=== PATIENT | female | born 1925 | race Caucasian/White ===

== ENCOUNTER 2016-11-07 11:02 | Observation (INO) | payer MEDICARE, OTHER ==
[2016-11-07] VITALS (7 sets, daily range): BP systolic 136–187; BP diastolic 67–81; PULSE 73–79; RESP 18–20; TEMP 97.9–98.8; O2SAT 94–100
[~2016-11-07] VITALS: Ht 162.6 cm; Wt 57.0 kg
[~2016-11-07 11:02] MED LIST: AMLO5 PO; ATEN50TA PO; CALCCHW25 PO; CELE1CAP8 PO; DIPH1TAB36 PO; METO25TA3 PO; PREM0.3T2 PO; VOLTAREN GEL TOP; ZANTTAB9 PO
[2016-11-07] MEDS ORDERED: CELE200C PO (11:16)
[2016-11-07] MEDS ORDERED: SODIUM CHLORIDE 0.9% FLUSH 5 ML FLUSH IVF PRN (11:45)
--- NOTE | 2016-11-07 11:50 | PD ---
HPI Chief Complaint: Cardiac Complaint Time Seen by Provider: 11:30 Travel History International Travel<30 days: No Contact w/Intl Traveler<30days: No Traveled to known affect area: No History of Present Illness HPI This is an 89-year-old female who presents via EMS for evaluation of chest tightness, palpitations. Symptoms started this morning at 2:30 AM, lasted for approximately 5 minutes, resolved. Symptoms recurred 4 times this morning, most recently at 10 AM. She reports that she has had increased urinary frequency today as well. She is currently not expressing any palpitations or chest tightness. She denies any associated symptoms such as nausea or vomiting , dizziness or lightheadedness, headache, fevers, chills, cough or congestion. The patient was admitted here on October 29 for third-degree heart block, had a transvenous pacemaker placed at that time which was discontinued prior to her discharge. She had one episode of SVT on the summer during her hospitalization. Her troponin was mildly elevated and the house felt to be secondary to her significant bradycardia per cardiology notes. She has a follow -up appointment with Dr. Herrera on December 01 and is supposed to be receiving a Holter monitor prior to this. She is currently on metoprolol 12.5 mg twice a day, Norvasc 5 mg daily for blood pressure control. She has no other complaints at this time. PFSH Past Medical History Arthritis: Yes Cancer: No Cardiovascular Problems: Yes Diabetes: No Endocrine: No Genitourinary: No Hepatitis: No Hiatal Hernia: No Hypertension: Yes Immune Disorder: No Medical other: Yes (MOTION SICKNESS) Musculoskeletal: Yes (NECK, BACK, ARTHRITIES) Neurologic: No Psychiatric: No Respiratory: No Thyroid Disease: No Tetanus Vaccination: > 5 Years Influenza Vaccination: Yes Menopausal: Yes Past Surgical History Abdominal Surgery: Yes (APPY) AICD: No Appendectomy: Yes Body Medical Devices: LEFT SHOULDER WITH SCREW Eye Surgery: Yes (BILAT CATARACT SURG) Gynecologic Surgery: Yes (TUBES AND 1 OVARY REMOVED) Joint Replacement: No Pacemaker: No Other Surgery: Yes (HEMORRHOIDECTOMY) Social History Alcohol Use: Yes (1 DRINK DAILY) Tobacco Use: No Substance Use: No Allergies-Medications (Allergen,Severity, Reaction): Coded Allergies: Flagyl (Verified Allergy, Intermediate, Rash, 11/07/16) Reported Meds & Prescriptions Reported Meds & Active Scripts Active Metoprolol Tartrate 25 Mg Tab 12.5 Mg PO Q12HR Norvasc (Amlodipine Besylate) 5 Mg Tab 5 Mg PO DAILY 30 Days Reported Celebrex (Celecoxib) 200 Mg Cap 200 Mg PO DAILY Prempro Blister Pack (Estrogens Conj/Medroxyprogest Acet) 0.3-1.5 Mg Tab 1 Tab PO DAILY Tylenol Pm Extra Strength (Diphenhydramine-Acetaminophen) 25-500 Mg Tab PO DAILY Review of Systems Except as stated in HPI: all other systems reviewed are Neg Physical Exam Narrative GENERAL: Pleasant well developed well-nourished female in no acute distress. SKIN: Warm and dry. HEAD: Atraumatic. Normocephalic. EYES: Pupils equal and round. No scleral icterus. No injection or drainage. ENT: No nasal bleeding or discharge. Mucous membranes pink and moist. NECK: Trachea midline. No JVD. CARDIOVASCULAR: Regular rate and rhythm. No murmur appreciated. RESPIRATORY: No accessory muscle use. Clear to auscultation. Breath sounds equal bilaterally. GASTROINTESTINAL: Abdomen soft, non-tender, nondistended. MUSCULOSKELETAL: No obvious deformities. No edema. NEUROLOGICAL: Awake and alert. No obvious cranial nerve deficits. Motor grossly within normal limits. Normal speech. PSYCHIATRIC: Appropriate mood and affect; insight and judgment normal. Data Data Last Documented VS Vital Signs Date Time Temp Pulse Resp B/P Pulse Ox O2 Delivery O2 Flow Rate FiO2 11/07/16 11:16 78 18 99 Room Air 11/07/16 11:06 98.8 187/81 Orders Electrocardiogram (11/07/16 ) Electrocardiogram (11/07/16 11:32) Basic Metabolic Panel (Bmp) (11/07/16 11:32) Ckmb (Isoenzyme) Profile (11/07/16 11:32) Complete Blood Count With Diff (11/07/16 11:32) Magnesium (Mg) (11/07/16 11:32) Prothrombin Time / Inr (Pt) (11/07/16 11:32) Act Partial Throm Time (Ptt) (11/07/16 11:32) Troponin I (11/07/16 11:32) Chest, Single Ap (11/07/16 11:32) Ecg Monitoring (11/07/16 11:32) Bilateral Bp Monitoring (11/07/16 11:32) Iv Access Insert/Monitor (11/07/16 11:32) Oximetry (11/07/16 11:32) Oxygen Administration (11/07/16 11:32) Sodium Chloride 0.9% Flush (Ns Flush) (11/07/16 11:45) Urinalysis - C+S If Indicated (11/07/16 11:32) Urine Culture (11/07/16 12:50) Ceftriaxone Inj (Rocephin Inj) (11/07/16 13:30) Admit Order (Ed Use Only) (11/07/16 13:33) Labs Laboratory Tests Test 11/07/16 11/07/16 11:40 12:50 White Blood Count 7.8 TH/MM3 Red Blood Count 4.11 MIL/MM3 Hemoglobin 12.9 GM/DL Hematocrit 37.9 % Mean Corpuscular Volume 92.3 FL Mean Corpuscular Hemoglobin 31.3 PG Mean Corpuscular Hemoglobin 33.9 % Concent Red Cell Distribution Width 13.0 % Platelet Count 301 TH/MM3 Mean Platelet Volume 9.2 FL Neutrophils (%) (Auto) 69.3 % Lymphocytes (%) (Auto) 14.3 % Monocytes (%) (Auto) 13.8 % Eosinophils (%) (Auto) 1.7 % Basophils (%) (Auto) 0.9 % Neutrophils # (Auto) 5.4 TH/MM3 Lymphocytes # (Auto) 1.1 TH/MM3 Monocytes # (Auto) 1.1 TH/MM3 Eosinophils # (Auto) 0.1 TH/MM3 Basophils # (Auto) 0.1 TH/MM3 CBC Comment DIFF FINAL Differential Comment Prothrombin Time 10.4 SEC Prothromb Time International 0.9 RATIO Ratio Activated Partial 26.4 SEC Thromboplast Time Sodium Level 144 MEQ/L Potassium Level 4.3 MEQ/L Chloride Level 110 MEQ/L Carbon Dioxide Level 23.0 MEQ/L Anion Gap 11 MEQ/L Blood Urea Nitrogen 22 MG/DL Creatinine 0.91 MG/DL Estimat Glomerular Filtration 58 ML/MIN Rate Random Glucose 93 MG/DL Calcium Level 9.3 MG/DL Magnesium Level 2.2 MG/DL Total Creatine Kinase 48 U/L Troponin I LESS THAN 0.02 NG/ML Urine Color YELLOW Urine Turbidity HAZY Urine pH 8.0 Urine Specific [place] 1.011 Urine Protein TRACE mg/dL Urine Glucose (UA) NEG mg/dL Urine Ketones TRACE mg/dL Urine Occult Blood SMALL Urine Nitrite POS Urine Bilirubin NEG Urine Urobilinogen LESS THAN 2.0 MG/DL Urine Leukocyte Esterase LARGE Urine RBC 14 /hpf Urine WBC 138 /hpf Urine Squamous Epithelial 4 /hpf Cells Urine Bacteria MOD /hpf Urine Mucus FEW /lpf Microscopic Urinalysis Comment CULTURE INDICATED MDM Medical Decision Making Medical Screen Exam Complete: Yes Emergency Medical Condition: Yes Medical Record Reviewed: Yes Interpretation(s) EKG reveals sinus rhythm, RBBB Chest x-ray no acute disease CBC WBC unremarkable BMP unremarkable, CK and troponin within normal limits Urinalysis 138 wbc's, positive nitrites, small blood, moderate bacteria, culture pending Differential Diagnosis Heart block, SVT, atrial fibrillation, acute coronary syndrome, angina, PVCs, PACs, electrolyte imbalance, atrial flutter, ventricular tachycardia Narrative Course 89-year-old female who was admitted on October 29 for evaluation of third- degree heart block presents for evaluation of intermittent episodes of palpitation and chest tightness this morning. Currently she is experiencing no discomfort. She notes increased urinary frequency today as well. 12-lead EKG was obtained. The patient was placed on the seat monitoring and pulse oximetry. IV established, basic lab work, chest x-ray have been ordered. The patient's urinalysis is consistent with a urinary tract infection and the patient will be given a dose of Rocephin. At this point time the plan is to admit the patient for further management of her chest pain, palpitations, UTI, likely for serial cardiac enzymes and cardiology consultation. Diagnosis Primary Impression: Chest pain Qualified Code: R07.9 - Chest pain, unspecified type Additional Impressions: Palpitations Urinary tract infection Qualified Code: N39.0 - Urinary tract infection with hematuria, site unspecified Admitting Information Admitting Physician Requests: Natan Mancini Nov 07, 2016 11:50
[2016-11-07 12:07] LABS: AUTOMATED NEUTROPHIL # 5.4 TH/MM3 (1.8-7.7); BASOPHIL # 0.1 TH/MM3 (0-0.2); BASOPHIL % 0.9 % (0.0-2.0); EOSINOPHIL # 0.1 TH/MM3 (0-0.4); EOSINOPHIL % 1.7 % (0.0-4.0); HEMATOCRIT 37.9 % (35.0-46.0); HEMO FLAGS DIFF FINAL; LYMPH % 14.3 % (9.0-44.0); LYMPHOCYTE # 1.1 TH/MM3 (1.0-4.8); MEAN CELL VOLUME 92.3 FL (80.0-100.0); MEAN CORPUSCULAR HEMOGLOBIN 31.3 PG (27.0-34.0); MEAN CORPUSCULAR HGB CONC 33.9 % (32.0-36.0); MONO % 13.8 % (0.0-8.0); NEUT % 69.3 % (16.0-70.0); PLATELET COUNT 301 TH/MM3 (150-450); RED BLOOD COUNT 4.11 MIL/MM3 (4.00-5.30); WHITE BLOOD COUNT 7.8 TH/MM3 (4.0-11.0)
[2016-11-07 12:21] LABS: APTT (PATIENT) 26.4 SEC (24.3-30.1); INTERNATIONAL NORMALIZED RATIO 0.9 RATIO; PROTHROMBIN TIME - PATIENT 10.4 SEC (9.8-11.6)
[2016-11-07 12:35] LABS: ANION GAP 11 MEQ/L (5-15); BLOOD UREA NITROGEN 22 MG/DL (7-18); CHLORIDE 110 MEQ/L (98-107); CREATINE KINASE 48 U/L (26-192); GLOMERULAR FILTRATION RATE 58 ML/MIN (>89); MAGNESIUM 2.2 MG/DL (1.5-2.5); POTASSIUM 4.3 MEQ/L (3.5-5.1); SODIUM (NA) 144 MEQ/L (136-145)
--- NOTE | 2016-11-07 12:43 | RADRPT ---
EXAM DATE/TIME: 11/07/2016 11:58 [facility] COMPARISON: CHEST SINGLE AP, October 31, 2016, 11:52. INDICATIONS : Chest Pain MEDICAL HISTORY : None. SURGICAL HISTORY : None. ENCOUNTER: Initial ACUITY: 1 day PAIN SCORE: 0/10 LOCATION: Bilateral chest FINDINGS: A single view of the chest demonstrates the lungs to be symmetrically aerated without evidence of mas s, infiltrate or effusion. The cardiomediastinal contours are unremarkable. Osseous structures demo nstrate left shoulder arthroplasty. Aortic calcification.. CONCLUSION: No acute disease. Louie Hudson MD on November 07, 2016 at 12:42 Board Certified Radiologist. This report was verified electronically.
[2016-11-07 13:06] LABS: BACTERIA, URINE MOD /hpf; BLOOD, URINE SMALL (NEG); COMMENT (UR) CULTURE INDICATED; CULTURE IF INDICATED CULTURE INDICATED; GLUCOSE,URINE NEG (NEG); KETONE, URINE TRACE mg/dL (NEG); MUCUS URINE FEW /lpf (OCC); SQUAMOUS EPITHELIAL CELL URINE 4 /hpf (0-5); URINE COLOR YELLOW (YELLW/STRAW)
[2016-11-07 13:07] LABS: NITRITE,URINE POS (NEG)
[2016-11-07] MEDS ORDERED: cefTRIAXone INJ 1,000 MG in SODIUM CHLORIDE 0.9% INJ 100 ML IV ONE (13:30)
--- NOTE | 2016-11-07 14:15 | HHI.HP ---
[facility] Family Medicine Primary Care Physician Srinivasa Oh MD Admission Diagnosis Chest pain, palpitations, UTI Diagnoses: International Travel<30 Days: No Contact w/Intl Traveler<30days: No Known Affected Area: No History of Present Illness Patient is a 89-year-old female with a PMH significant for HTN. Patient was recently admitted on 10/29 for lightheadedness and dizziness which was attributed to symptomatic bradycardia. She was found to have third-degree AV block and was currently on atenolol at that time. She was placed on TVP and then converted to sinus rhythm after discontinuation of atenolol. Cardiology at that time did not feel permanent pacemaker was required. During that hospitalization, she did experience an episode of SVT for 2 minutes but with spontaneous conversion to normal sinus. Today patient woke up at 2 AM and had palpitations. She again had recurrent episodes of palpitations at 6 AM, 7:30 AM, and 11 AM. Each episode lasted for about 3-5 minutes. Required her to sit down before spontaneously resolving. During those episodes, she endorses chest heaviness that was diffusely across the chest without radiation. No associated shortness of breath, diaphoresis, nausea/vomiting. These palpitations did wake the patient up from her sleep. She reports that these episodes of palpitations and chest heaviness are different than her prior admission which was more related to dizziness and lightheadedness. She has not had anymore episodes of lightheadedness since last admission. Patient also reports an increase in urinary frequency but no dysuria. Review of Systems Constitutional: DENIES: Diaphoretic episodes, Dizziness Ears, nose, mouth, throat: DENIES: Vertigo, Running Nose Respiratory: DENIES: Shortness of breath Cardiovascular: DENIES: Chest pain, Palpitations, Syncope Gastrointestinal: DENIES: Abdominal pain, Nausea, Vomiting Genitourinary: COMPLAINS OF: Urinary frequency, DENIES: Dysuria Neurologic: DENIES: Headache Past Family Social History Past Medical History Osteoarthritis Hypertension 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, has since resolved Past Surgical History Appendectomy Bilateral cataracts Left total shoulder arthroplasty Salpingo-oophorectomy Hemorrhoidectomy Reported Medications Reported Meds & Active Scripts Active Metoprolol Tartrate 25 Mg Tab 12.5 Mg PO Q12HR Norvasc (Amlodipine Besylate) 5 Mg Tab 5 Mg PO DAILY 30 Days Reported Celebrex (Celecoxib) 200 Mg Cap 200 Mg PO DAILY Prempro Blister Pack (Estrogens Conj/Medroxyprogest Acet) 0.3-1.5 Mg Tab 1 Tab PO DAILY Tylenol Pm Extra Strength (Diphenhydramine-Acetaminophen) 25-500 Mg Tab PO DAILY Allergies: Coded Allergies: Flagyl (Verified Allergy, Intermediate, Rash, 11/07/16) Family History Dad: Stroke, heart dz Mom: Alzheimers Sibs: Prostate CA Social History EtOH: one drink daily Tob: 10 pack/yr smoker; quit in 1966 Illicits: None Physical Exam Vital Signs Vital Signs Date Time Temp Pulse Resp B/P Pulse Ox O2 Delivery O2 Flow Rate FiO2 11/07/16 14:04 99 Room Air 11/07/16 14:04 99 Room Air 11/07/16 14:03 73 20 136/74 99 Room Air 11/07/16 11:16 78 18 99 Room Air 11/07/16 11:06 98.8 73 18 187/81 99 Physical Exam GENERAL: This is a well-nourished, well-developed patient, in no apparent distress. SKIN: No rashes, ecchymoses or lesions. Cool and dry. EYES: Pupils equal round and reactive. Extraocular motions intact. No scleral icterus. No injection or drainage. ENT: Nose without bleeding, purulent drainage. Throat without erythema, tonsillar hypertrophy or exudate. Uvula midline. Airway patent. NECK:No JVD CARDIOVASCULAR: Regular rate and rhythm without murmurs, gallops, or rubs. RESPIRATORY: Clear to auscultation. Breath sounds equal bilaterally. No wheezes , rales, or rhonchi. GASTROINTESTINAL: Abdomen soft, non-tender, nondistended. No hepato-splenomegaly , or palpable masses. No guarding. MUSCULOSKELETAL: Extremities without clubbing, cyanosis, or edema. No calf tenderness. NEUROLOGICAL: Awake and alert. Motor and sensory grossly within normal limits. Normal speech. Laboratory Laboratory Tests Test 11/07/16 11/07/16 11:40 12:50 White Blood Count 7.8 Red Blood Count 4.11 Hemoglobin 12.9 Hematocrit 37.9 Mean Corpuscular Volume 92.3 Mean Corpuscular Hemoglobin 31.3 Mean Corpuscular Hemoglobin 33.9 Concent Red Cell Distribution Width 13.0 Platelet Count 301 Mean Platelet Volume 9.2 Neutrophils (%) (Auto) 69.3 Lymphocytes (%) (Auto) 14.3 Monocytes (%) (Auto) 13.8 Eosinophils (%) (Auto) 1.7 Basophils (%) (Auto) 0.9 Neutrophils # (Auto) 5.4 Lymphocytes # (Auto) 1.1 Monocytes # (Auto) 1.1 Eosinophils # (Auto) 0.1 Basophils # (Auto) 0.1 CBC Comment DIFF FINAL Differential Comment Prothrombin Time 10.4 Prothromb Time International 0.9 Ratio Activated Partial 26.4 Thromboplast Time Sodium Level 144 Potassium Level 4.3 Chloride Level 110 Carbon Dioxide Level 23.0 Anion Gap 11 Blood Urea Nitrogen 22 Creatinine 0.91 Estimat Glomerular Filtration 58 Rate Random Glucose 93 Calcium Level 9.3 Magnesium Level 2.2 Total Creatine Kinase 48 Troponin I LESS THAN 0.02 Urine Color YELLOW Urine Turbidity HAZY Urine pH 8.0 Urine Specific [place] 1.011 Urine Protein TRACE Urine Glucose (UA) NEG Urine Ketones TRACE Urine Occult Blood SMALL Urine Nitrite POS Urine Bilirubin NEG Urine Urobilinogen LESS THAN 2.0 Urine Leukocyte Esterase LARGE Urine RBC 14 Urine WBC 138 Urine Squamous Epithelial 4 Cells Urine Bacteria MOD Urine Mucus FEW Microscopic Urinalysis Comment CULTURE INDICATED Date/Time Procedure Status Source Growth 11/07/16 12:50 Urine Culture Received Urine Clean Catch Pending Result Diagram: 11/07/16 1140 11/07/16 1140 Imaging Last Impressions Chest X-Ray 11/07/16 1132 Signed Impressions: Service Date/Time: Monday, November 07, 2016 11:58 - CONCLUSION: No acute disease. Louie Hudson MD Assessment and Plan Assessment and Plan 89-year-old female with PMH significant for HTN. Recently hospitalized for third degree heart block attributed to atenolol but has since resolved. Admitted for recurrent palpitations and chest heaviness. Code Status Full Discussed Condition With Dr. Grimaldo Problem List: (1) Palpitations Status: Acute Plan: Presented due to 4 episodes of palpitations that lasted for 3-5 minutes. Associated with chest heaviness but is currently asymptomatic. History complicated by recent admission for AV heart block contributed to atenolol; during the hospitalization she did have an episode of SVT that spontaneously resolved. She was scheduled to get a Holter monitor and follow-up with Dr. Herrera within 3wks of discharge. Low suspicion for ischemia but rather concerned for recurrent, symptomatic SVT that may require further intervention. -EKG significant for right bundle branch that this is stable from prior EKGs. Troponin was <0.02. No ST changes * Repeat EKG and troponin 2 at q3hr -Cardiac telemetry Cardiology consulted: For concern of recurrent SVT. Appreciate recommendations Medications: * Amlodipine 5 mg (continued home medication) * Metoprolol 12.5 mg q12 (continued home medication) (2) Urinary tract infection Status: Acute Plan: Complains of increased urinary frequency. UA significant for positive nitrates and large leukocyte esterase. No concern for sepsis at this time. Rocephin 3 days (11/07-11/09) (3) Hypertension Status: Acute Plan: Continued home medications, see above -Vasotec PRN (4) Arthritis Status: Chronic Plan: Continue home medication of Celebrex 200 mg daily -Added Leslie pain medications when necessary (5) Fluids, Electrolytes, and Nutrition Status: Acute Plan: Diet: Regular Fluids: None Electrolytes: Unremarkable, continue to monitor DVT prophylaxis: Lovenox GI prophylaxis: None indicated Problem Qualifiers (1) Urinary tract infection: Qualified Code: N39.0 - Urinary tract infection with hematuria, site unspecified Reena Irizarry MD R2 Nov 07, 2016 14:15
[2016-11-07] MEDS ORDERED: NALOXONE HCL 0.4 MG/ML AMP IV PRN ×2 (15:30)
[2016-11-07] MEDS ORDERED: SODIUM CHLORIDE 0.9% FLUSH 5 ML FLUSH FLUSH PRN (15:30)
[2016-11-07] MEDS ORDERED: ACETAMINOPHEN 325 MG TAB PO PRN (15:30)
[2016-11-07] MEDS ORDERED: oxyCODONE/ACETAMINOPHEN 10 MG/325 MG TAB PO PRN (15:30)
[2016-11-07] MEDS ORDERED: oxyCODONE/ACETAMINOPHEN 5 MG/325 MG TAB PO PRN (15:30)
[2016-11-07] MEDS ORDERED: ONDANSETRON HCL 4 MG/2 ML VIAL IVP PRN (15:30)
[2016-11-07] MEDS ORDERED: ENALAPRILAT 1.25 MG/ML VIAL IV PRN (15:30)
[2016-11-07] MEDS ORDERED: ENOXAPARIN SODIUM 40 MG/0.4 ML SYRINGE SQ SCH (17:00)
[2016-11-07] MEDS: SODIUM CHLORIDE 0.9% FLUSH 5 ML FLUSH FLUSH SCH (20:21)
[2016-11-07] MEDS: METOPROLOL TARTRATE 25 MG TAB PO SCH (20:21)
[2016-11-08] VITALS (11 sets, daily range): BP systolic 144–151; BP diastolic 73–90; PULSE 70–98; RESP 18–20; TEMP 98.1–98.3; O2SAT 95–98
[2016-11-08 07:55] LABS: AUTOMATED NEUTROPHIL # 2.6 TH/MM3 (1.8-7.7); BASOPHIL # 0.1 TH/MM3 (0-0.2); BASOPHIL % 1.4 % (0.0-2.0); EOSINOPHIL # 0.2 TH/MM3 (0-0.4); EOSINOPHIL % 4.9 % (0.0-4.0); HEMO FLAGS DIFF FINAL; LYMPHOCYTE # 1.2 TH/MM3 (1.0-4.8); MEAN CELL VOLUME 92.8 FL (80.0-100.0); MEAN CORPUSCULAR HEMOGLOBIN 30.4 PG (27.0-34.0); MEAN CORPUSCULAR HGB CONC 32.7 % (32.0-36.0); MONO % 15.8 % (0.0-8.0); NEUT % 52.9 % (16.0-70.0); PLATELET COUNT 271 TH/MM3 (150-450); RED BLOOD COUNT 3.99 MIL/MM3 (4.00-5.30); RED CELL DISTRIBUTION WIDTH 13.2 % (11.6-17.2); WHITE BLOOD COUNT 4.9 TH/MM3 (4.0-11.0)
[2016-11-08 08:37] LABS: POTASSIUM 3.7 MEQ/L (3.5-5.1)
[2016-11-08] MEDS ORDERED: CELECOXIB 200 MG CAP PO SCH ×2 (09:00)
[2016-11-08] MEDS ORDERED: amLODIPine BESYLATE 5 MG TAB PO SCH (09:00)
[2016-11-08] MEDS: METOPROLOL TARTRATE 25 MG TAB PO SCH (09:41)
[2016-11-08] MEDS: cefTRIAXone INJ 1,000 MG in SODIUM CHLORIDE 0.9% INJ 100 ML IV SCH ×2 (09:42→10:41)
[2016-11-08] MEDS: SODIUM CHLORIDE 0.9% FLUSH 5 ML FLUSH FLUSH SCH (09:42)
--- NOTE | 2016-11-08 10:08 | HHI.DCPOC ---
Discharge Care Plan Diagnosis: (1) Palpitations (2) Chest pain Goals to Promote Your Health * To prevent worsening of your condition and complications * To maintain your health at the optimal level Directions to Meet Your Goals Take your medications as prescribed Follow your dietary instruction Follow activity as directed Keep your appointments as scheduled Take your immunizations and boosters as scheduled If your symptoms worsen call your PCP, if no PCP go to Urgent Care Center or Emergency Room Smoking is Dangerous to Your Health. Avoid second hand smoke Call the 24-hour hour crisis hotline for domestic abuse at Joanne Pope MD Nov 08, 2016 10:08
[2016-11-08] MEDS ORDERED: BACT800T5 PO (10:11)
--- NOTE | 2016-11-08 11:16 | HHI.HP ---
[facility] Service Family Medicine Primary Care Physician Srinivasa Oh MD Admission Diagnosis Chest pain, palpitations, UTI Diagnoses: (1) Palpitations Diagnosis: Principal (2) Urinary tract infection Diagnosis: Principal (3) Hypertension Diagnosis: Principal (4) Arthritis Diagnosis: Principal (5) Fluids, Electrolytes, and Nutrition Diagnosis: Principal International Travel<30 Days: No Contact w/Intl Traveler<30days: No Known Affected Area: No History of Present Illness Ms Hyman is an 89-year-old female with a PMH significant for HTN. Patient was recently admitted on 10/29 for lightheadedness and dizziness which was attributed to symptomatic bradycardia. She was found to have third-degree AV block and was currently on atenolol at that time. She was placed on TV Pacemaker and then converted to sinus rhythm after discontinuation of atenolol. Cardiology at that time did not feel permanent pacemaker was required. During that hospitalization, she did experience an episode of SVT for 2 minutes but with spontaneous conversion to normal sinus. The day of admission, patient woke up at 2 AM and had palpitations. She again had recurrent episodes of palpitations at 6 AM, 7:30 AM, and 11 AM. Each episode lasted for about 3-5 minutes and occurred when she was walking to the bathroom. Required her to sit down before spontaneously resolving. During those episodes, she endorses chest heaviness that was diffusely across the chest without radiation. No associated shortness of breath, diaphoresis, nausea/ vomiting. These palpitations did wake the patient up from her sleep. She reports that these episodes of palpitations and chest heaviness are different than her prior admission which was more related to dizziness and lightheadedness. She has not had anymore episodes of lightheadedness since last admission. Patient also reports an increase in urinary frequency but no dysuria. She was found to have a UTI and has been treated with rocephin and will go home on Bactrim. She has had no episodes of tachycardia or palpitations since she came to the hospital. She will walk and be sure she is doing well but prefers to go home today as her sxs are gone. Perhaps, she is better from having her UTI treated. In any case, she has an appointment with Dr Herrera and will get a holter monitor from his office. I taught her how to check her own pulse and she was able to demonstrate proficiency. She was informed that it should be between 60 and 100 at rest. She also endorsed some anxiety after being hospitalized with her last event where she needed to be in the [facility] [place] and was very ill. She had no dizziness or lightheadedness when standing up today but was a little frightened in general. Review of Systems Constitutional: DENIES: Dizziness Cardiovascular: COMPLAINS OF: Palpitations, DENIES: Syncope, PND, Lower Extremity Edema, Orthopnea, Claudication Gastrointestinal: DENIES: Abdominal pain Integumentary: DENIES: Abnormal pigmentation Neurologic: DENIES: Abnormal gait, Seizures, Poor Balance Psychiatric: COMPLAINS OF: Anxiety, DENIES: Confusion, Hallucinations, Suicidal Ideation, Delusions Other Constitutional: DENIES: Diaphoretic episodes, Dizziness Ears, nose, mouth, throat: DENIES: Vertigo, Running Nose Respiratory: DENIES: Shortness of breath Cardiovascular: DENIES: Chest pain, Syncope Gastrointestinal: DENIES: Abdominal pain, Nausea, Vomiting Genitourinary: COMPLAINS OF: Urinary frequency, DENIES: Dysuria Neurologic: DENIES: Headache Past Family Social History Past Medical History Osteoarthritis Hypertension 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, has since resolved Past Surgical History Appendectomy Bilateral cataracts Left total shoulder arthroplasty Salpingo-oophorectomy Hemorrhoidectomy Allergies: Coded Allergies: Flagyl (Verified Allergy, Intermediate, Rash, 11/07/16) Family History Dad: Stroke, heart dz Mom: Alzheimers Sibs: Prostate CA Social History EtOH: one drink daily Tob: 10 pack/yr smoker; quit in 1966 Illicits: None advised not to drive for one month at last D/C home Physical Exam Vital Signs Vital Signs Date Time Temp Pulse Resp B/P Pulse Ox O2 Delivery O2 Flow Rate FiO2 11/08/16 08:05 98.1 85 18 151/76 98 11/08/16 08:05 98 Room Air 11/08/16 08:05 80 11/08/16 06:00 70 11/08/16 05:00 72 11/08/16 04:00 74 11/08/16 04:00 Room Air 11/08/16 04:00 98.1 74 18 146/73 98 11/08/16 03:00 72 11/08/16 02:00 71 11/08/16 01:00 70 11/08/16 00:00 98.2 70 20 144/90 95 11/08/16 00:00 Room Air 11/08/16 00:00 71 11/07/16 20:00 77 11/07/16 20:00 95 11/07/16 19:37 98.0 78 20 152/67 94 11/07/16 18:00 97.9 79 18 175/80 98 11/07/16 15:14 80 19 100 Room Air 11/07/16 15:14 74 19 167/79 100 Room Air 11/07/16 14:04 99 Room Air 11/07/16 14:04 99 Room Air 11/07/16 14:03 73 20 136/74 99 Room Air 11/07/16 11:16 78 18 99 Room Air 11/07/16 11:06 98.8 73 18 187/81 99 Physical Exam GENERAL: This is a frail elderly patient, in no apparent distress. able to stand with no problems SKIN: No rashes, ecchymoses or lesions. Cool and dry. EYES: Pupils equal round and reactive. Extraocular motions intact. No scleral icterus. No injection or drainage. ENT: Nose without bleeding, purulent drainage. Uvula midline. Airway patent. NECK:No JVD CARDIOVASCULAR: Regular rate and rhythm without murmurs, gallops, or rubs. RESPIRATORY: Clear to auscultation. Breath sounds equal bilaterally. No wheezes , rales, or rhonchi. GASTROINTESTINAL: Abdomen soft, non-tender, nondistended. No hepato-splenomegaly , or palpable masses. No guarding. MUSCULOSKELETAL: Extremities without clubbing, cyanosis, or edema. No calf tenderness. NEUROLOGICAL: Awake and alert. Motor and sensory grossly within normal limits. Normal speech. Laboratory Laboratory Tests Test 11/07/16 11/07/16 11/07/16 11/07/16 11:40 12:50 16:00 18:42 White Blood Count 7.8 Red Blood Count 4.11 Hemoglobin 12.9 Hematocrit 37.9 Mean Corpuscular Volume 92.3 Mean Corpuscular Hemoglobin 31.3 Mean Corpuscular Hemoglobin 33.9 Concent Red Cell Distribution Width 13.0 Platelet Count 301 Mean Platelet Volume 9.2 Neutrophils (%) (Auto) 69.3 Lymphocytes (%) (Auto) 14.3 Monocytes (%) (Auto) 13.8 Eosinophils (%) (Auto) 1.7 Basophils (%) (Auto) 0.9 Neutrophils # (Auto) 5.4 Lymphocytes # (Auto) 1.1 Monocytes # (Auto) 1.1 Eosinophils # (Auto) 0.1 Basophils # (Auto) 0.1 CBC Comment DIFF FINAL Differential Comment Prothrombin Time 10.4 Prothromb Time International 0.9 Ratio Activated Partial 26.4 Thromboplast Time Sodium Level 144 Potassium Level 4.3 Chloride Level 110 Carbon Dioxide Level 23.0 Anion Gap 11 Blood Urea Nitrogen 22 Creatinine 0.91 Estimat Glomerular Filtration 58 Rate Random Glucose 93 Calcium Level 9.3 Magnesium Level 2.2 Total Creatine Kinase 48 Troponin I LESS THAN 0.02 LESS THAN 0.02 LESS THAN 0.02 Urine Color YELLOW Urine Turbidity HAZY Urine pH 8.0 Urine Specific Golden 1.011 Urine Protein TRACE Urine Glucose (UA) NEG Urine Ketones TRACE Urine Occult Blood SMALL Urine Nitrite POS Urine Bilirubin NEG Urine Urobilinogen LESS THAN 2.0 Urine Leukocyte Esterase LARGE Urine RBC 14 Urine WBC 138 Urine Squamous Epithelial 4 Cells Urine Bacteria MOD Urine Mucus FEW Microscopic Urinalysis Comment CULTURE INDICATED Test 11/08/16 06:30 White Blood Count 4.9 Red Blood Count 3.99 Hemoglobin 12.1 Hematocrit 37.0 Mean Corpuscular Volume 92.8 Mean Corpuscular Hemoglobin 30.4 Mean Corpuscular Hemoglobin 32.7 Concent Red Cell Distribution Width 13.2 Platelet Count 271 Mean Platelet Volume 8.7 Neutrophils (%) (Auto) 52.9 Lymphocytes (%) (Auto) 25.0 Monocytes (%) (Auto) 15.8 Eosinophils (%) (Auto) 4.9 Basophils (%) (Auto) 1.4 Neutrophils # (Auto) 2.6 Lymphocytes # (Auto) 1.2 Monocytes # (Auto) 0.8 Eosinophils # (Auto) 0.2 Basophils # (Auto) 0.1 CBC Comment DIFF FINAL Differential Comment Sodium Level 142 Potassium Level 3.7 Chloride Level 110 Carbon Dioxide Level 24.0 Anion Gap 8 Blood Urea Nitrogen 19 Creatinine 0.66 Estimat Glomerular Filtration 84 Rate Random Glucose 83 Calcium Level 8.6 Date/Time Procedure Status Source Growth 11/07/16 12:50 Urine Culture Received Urine Clean Catch Pending Result Diagram: 11/08/16 0630 11/08/16 0630 Imaging Last Impressions Chest X-Ray 11/07/16 1132 Signed Impressions: Service Date/Time: Monday, November 07, 2016 11:58 - CONCLUSION: No acute disease. Louie Hudson MD Assessment and Plan Assessment and Plan 89-year-old female with PMH significant for HTN. Recently hospitalized for third degree heart block attributed to atenolol but has since resolved. Admitted for recurrent palpitations and chest heaviness. Negative for LA or any arrhythmias on her monitor. She is in NSR. Dispo:she wishes to go home today as she is feeling better and wishes to be home with her who has some dementia. She will follow up with Dr Oh and Dr Herrera.Can consider D/Cing estrogen as an outpt Condition: stable. improved since admission with no episode of palpitations at all. Problem List: (1) Palpitations Status: Acute Plan: Presented due to 4 episodes of palpitations that lasted for 3-5 minutes. Associated with chest heaviness but is currently asymptomatic. History complicated by recent admission for AV heart block contributed to atenolol; during the hospitalization she did have an episode of SVT that spontaneously resolved. She was scheduled to get a Holter monitor and follow-up with Dr. Herrera within 3wks of discharge. Low suspicion for ischemia but rather concerned for recurrent, symptomatic SVT that may require further intervention. -EKG significant for right bundle branch that this is stable from prior EKGs. Troponin was <0.02. No ST changes * Repeat EKG and troponin 2 at q3hr all normal -Cardiac telemetry showed no arrhythmias Cardiology consulted last visit: She has an appointment with Dr Herrera and prefers to follow in his office Medications: * Amlodipine 5 mg (continued home medication) * Metoprolol 12.5 mg q12 (continued home medication) Her symptoms could be related to a UTI. She had a catheter last hospitalization and had the palpitations when she would get up every 2 to 3 hours to urinate. Fortunately, she is not more symptomatic but a UTI can account for some tachycardia and fevers. She feels improved after abx and has no current tachycardia. She knows how to check her pulse accurately and can call her Drs if she is outside the normal range or come back to the hospital if she becomes symptomatic. (2) Urinary tract infection Status: Acute Plan: Complains of increased urinary frequency. UA significant for positive nitrates and large leukocyte esterase. No concern for sepsis at this time. Rocephin 2 days (11/07-11/09) she wants to go home today so she was given a script for Bactrim DS to finish out her course (3) Hypertension Status: Acute Plan: Continued home medications, see above -Vasotec PRN need to keep her diastolic above 65 and she is doing well with that (4) Arthritis Status: Chronic Plan: Continue home medication of Celebrex 200 mg daily -Added [place] pain medications when necessary (5) Fluids, Electrolytes, and Nutrition Status: Acute Plan: Diet: Regular Fluids: None Electrolytes: Unremarkable, continue to monitor DVT prophylaxis: Lovenox GI prophylaxis: None indicated Problem Qualifiers (1) Urinary tract infection: Qualified Code: N39.0 - Urinary tract infection with hematuria, site unspecified Kinza Grimaldo MD Nov 08, 2016 11:16
--- NOTE | 2016-11-08 17:49 | EKG ---
Date Performed: 11/07/2016 Time Performed: 11:05:49 PTAGE: 89 years EKG: Sinus rhythm RIGHT BUNDLE BRANCH BLOCK When compared to previous tracing, the patient is no longer Tachycardic. A BNORMAL ECG PREVIOUS TRACING : 11/01/2016 09.49 DOCTOR: Isidra Tiwari Interpretating Date/Time 11/08/2016 17:47:58
--- NOTE | 2016-11-08 17:49 | EKG ---
Date Performed: 11/07/2016 Time Performed: 16:27:27 PTAGE: 89 years EKG: Sinus rhythm RIGHT BUNDLE BRANCH BLOCK Since previous tracing, no significant change noted ABNORMAL ECG PREVIOUS TRACING : 11/07/2016 11.05 DOCTOR: Isidra Tiwari Interpretating Date/Time 11/08/2016 17:48:12
--- NOTE | 2016-11-08 17:50 | EKG ---
Date Performed: 11/07/2016 Time Performed: 18:49:06 PTAGE: 89 years EKG: Sinus rhythm RIGHT BUNDLE BRANCH BLOCK Since previous tracing, no significant change noted ABNORMAL ECG PREVIOUS TRACING : 11/07/2016 16.27 DOCTOR: Isidra Tiwari Interpretating Date/Time 11/08/2016 17:48:22
[2016-11-16] MEDS ORDERED: PREM0.3T2 PO (13:40)
[2016-11-16] MEDS ORDERED: CELE200C PO (13:40)
[2016-11-18] MEDS ORDERED: CELE200C PO (19:27)
[2016-11-18] MEDS ORDERED: PREM0.3T2 PO (19:27)
[2017-01-10] MEDS ORDERED: TRIA40P IJ (11:58)
[2017-01-10] MEDS ORDERED: METO25TA6 PO (12:10)
[2017-01-10] MEDS ORDERED: AMLO5 PO (12:10)
[2017-03-01] MEDS ORDERED: ALPR0.25 PO (10:53)
== END 2016-11-08 12:06 | disposition home or self-care (01) ==
LOC: NEPA 11:02 → NEDH 13:35 → NEPHCDU 17:38 → HCIS 22:25
PROVIDERS: ADMIT Family Medicine; ATTEND Family Medicine
DX: R07.9 Chest pain, unspecified (principal); N39.0 Urinary tract infection, site not specified; R00.2 Palpitations; R35.0 Frequency of micturition; I10 Essential (primary) hypertension; Z79.899 Other long term (current) drug therapy; I45.10 Unspecified right bundle-branch block; R31.9 Hematuria, unspecified; I44.2 Atrioventricular block, complete; M19.90 Unspecified osteoarthritis, unspecified site; B96.20 Unspecified Escherichia coli [E. coli] as the cause of diseases classified elsewhere
CPT/HCPCS: 71010; 80048; 81001; 82550; 83735; 84484; 85025; 85610; 85730; 87077; 87086; 87186; 93005; 99285; G0378; J0696; J1650

== ENCOUNTER 2017-09-19 15:55 | Inpatient (IN) | payer MEDICARE, OTHER ==
[~2017-09-19] VITALS: Ht 162.6 cm; Wt 55.5 kg
[2017-09-19] VITALS (9 sets, daily range): BP systolic 116–225; BP diastolic 56–105; PULSE 58–89; RESP 16–19; TEMP 98–98.2; O2SAT 94–99
[~2017-09-19 15:55] MED LIST changes: +ALPR0.25 PO; -ATEN50TA PO; -CALCCHW25 PO; -CELE1CAP8 PO; +CELE200C PO; +METO1TAB42 PO; -METO25TA3 PO; -VOLTAREN GEL TOP; -ZANTTAB9 PO
--- NOTE | 2017-09-19 16:32 | RADRPT ---
EXAM DATE/TIME: 09/19/2017 16:23 [facility] COMPARISON: No previous studies available for comparison. INDICATIONS : Chest pain. MEDICAL HISTORY : Hypertension. SURGICAL HISTORY : Pacemaker placement and removal. ENCOUNTER: Initial ACUITY: 3 weeks PAIN SCORE: 4/10 LOCATION: middle chest. FINDINGS: PA and lateral views of the chest demonstrate the lungs to be symmetrically aerated without evidence of mass, infiltrate or effusion. The cardiomediastinal contours are unremarkable. Osseous structure s are intact. A left humeral head prostheses. Scoliotic curvature involving a degenerative spine. CONCLUSION: No acute disease. Luis M Maurice Jr., MD on September 19, 2017 at 16:30 Board Certified Radiologist. This report was verified electronically.
[2017-09-19] MEDS ORDERED: ACET25TA4 (17:27)
[2017-09-19 18:15] LABS: BASOPHIL # 0.1 TH/MM3 (0-0.2); BASOPHIL % 0.8 % (0.0-2.0); EOSINOPHIL # 0.1 TH/MM3 (0-0.4); EOSINOPHIL % 1.3 % (0.0-4.0); HEMATOCRIT 38.9 % (35.0-46.0); HEMO FLAGS DIFF FINAL; LYMPH % 15.1 % (9.0-44.0); MEAN CELL VOLUME 95.5 FL (80.0-100.0); MEAN CORPUSCULAR HEMOGLOBIN 31.9 PG (27.0-34.0); MEAN CORPUSCULAR HGB CONC 33.4 % (32.0-36.0); MONO % 9.9 % (0.0-8.0); NEUT % 72.9 % (16.0-70.0); PLATELET COUNT 262 TH/MM3 (150-450); RED BLOOD COUNT 4.07 MIL/MM3 (4.00-5.30); RED CELL DISTRIBUTION WIDTH 13.6 % (11.6-17.2); WHITE BLOOD COUNT 6.8 TH/MM3 (4.0-11.0)
--- NOTE | 2017-09-19 18:25 | PD ---
HPI Chief Complaint: Syncope/Near-Syncope Time Seen by Provider: 17:42 Travel History International Travel<30 days: No Contact w/Intl Traveler<30days: No Traveled to known affect area: No History of Present Illness HPI Patient is a 89 year old female sent to the ED by Dr. Bishop from [facility] for "blacking out." Since October 2016, she has had intermittent episodes of posterior headache, dizziness, neck pain, and chest pressure that leads to blacking out. Patient states after the episode her blood pressure increases, heart races and her legs feel weak. She had 3 episodes last week. Last episode was 2 days ago while watching tv. She has also had episodes of double vision over the past few days. She denies shortness of breath, nausea , vomiting, abdominal pain changes in bowels or urination. No chest pain on exertion or outside of these episodes. No post-ictal period, tongue biting or incontinence. Modifying Factors: None Associated Signs & Symptoms: Syncopal episodes, chest discomfort, headache Risk Factors: Previous cardiac issues, third-degree heart block PFSH Past Medical History Arthritis: Yes Anxiety: Yes Heart Rhythm Problems: Yes Cancer: No Cardiovascular Problems: Yes Diabetes: No Endocrine: No Genitourinary: No Hepatitis: No Hiatal Hernia: No Hypertension: Yes Immune Disorder: No Implanted Vascular Access Dvce: Yes Medical other: Yes (MOTION SICKNESS) Musculoskeletal: Yes (NECK, BACK, ARTHRITIES) Neurologic: No Psychiatric: No Respiratory: No Thyroid Disease: No Menopausal: Yes Past Surgical History Abdominal Surgery: Yes (APPY) AICD: No Appendectomy: Yes Body Medical Devices: LEFT SHOULDER WITH SCREW Eye Surgery: Yes (BILAT CATARACT SURG) Gynecologic Surgery: Yes (TUBES AND 1 OVARY REMOVED) Joint Replacement: No Pacemaker: No Other Surgery: Yes (HEMORRHOIDECTOMY) Social History Alcohol Use: Yes (1 DRINK DAILY) Tobacco Use: No Substance Use: No Allergies-Medications (Allergen,Severity, Reaction): Coded Allergies: metronidazole (Unverified Allergy, Intermediate, Rash, 09/19/17) Reported Meds & Prescriptions Reported Meds & Active Scripts Active Alprazolam 0.25 Mg Tab 0.25 Mg PO BID PRN Metoprolol Succinate ER 24 HR (Metoprolol Succinate) 25 Mg Tab 25 Mg PO DAILY Norvasc (Amlodipine Besylate) 5 Mg Tab 5 Mg PO DAILY Celebrex (Celecoxib) 200 Mg Cap 200 Mg PO DAILY Prempro Blister Pack (Estrogens Conj/Medroxyprogest Acet) 0.3-1.5 Mg Tab 1 Tab PO DAILY Reported Acetaminophen Pm Extra St (Diphenhydramine-Acetaminophen) 500-25 mg Tab Review of Systems Except as stated in HPI: all other systems reviewed are Neg Physical Exam Narrative GENERAL: Well-developed pleasant elderly white female. Well-nourished. Sitting up comfortably in bed. In no acute distress. SKIN: Warm and dry. HEAD: Atraumatic. Normocephalic. EYES: Pupils equal and round. No scleral icterus. No injection or drainage. Extraocular movements intact. ENT: No nasal bleeding or discharge. Mucous membranes pink and moist. NECK: Trachea midline. No JVD. CARDIOVASCULAR: Regular rate and rhythm. Radial and pedal pulses 2+ bilaterally. Pulses are present and equal bilaterally. RESPIRATORY: No accessory muscle use. Clear to auscultation. Breath sounds equal bilaterally. GASTROINTESTINAL: Abdomen soft, non-tender, nondistended. Hepatic and splenic margins not palpable. MUSCULOSKELETAL: Extremities without clubbing, cyanosis, or edema. No obvious deformities. NEUROLOGICAL: Awake and alert. No obvious cranial nerve deficits. No pronator drift Motor grossly within normal limits. Five out of 5 muscle strength in the arms and legs. Normal speech. PSYCHIATRIC: Appropriate mood and affect; insight and judgment normal. Data Data Last Documented VS Vital Signs Date Time Temp Pulse Resp B/P (MAP) Pulse Ox O2 Delivery O2 Flow Rate FiO2 09/19/17 17:31 66 19 205/81 (122) 97 Room Air 09/19/17 15:58 98.2 Orders Orders Electrocardiogram (09/19/17 16:08) Basic Metabolic Panel (Bmp) (09/19/17 16:08) Ckmb (Isoenzyme) Profile (09/19/17 16:08) Complete Blood Count With Diff (09/19/17 16:08) Magnesium (Mg) (09/19/17 16:08) Prothrombin Time / Inr (Pt) (09/19/17 16:08) Act Partial Throm Time (Ptt) (09/19/17 16:08) Troponin I (09/19/17 16:08) Chest, Pa & Lat (09/19/17 16:08) Ct Brain W/O Iv Contrast(Rout) (09/19/17 17:46) Ct Cerv Spine W/O Contrast (09/19/17 17:47) Clonidine (Catapres) (09/19/17 19:15) Admit Order (Ed Use Only) (09/19/17 19:32) Labs Laboratory Tests Test 09/19/17 17:45 White Blood Count 6.8 TH/MM3 Red Blood Count 4.07 MIL/MM3 Hemoglobin 13.0 GM/DL Hematocrit 38.9 % Mean Corpuscular Volume 95.5 FL Mean Corpuscular Hemoglobin 31.9 PG Mean Corpuscular Hemoglobin Concent 33.4 % Red Cell Distribution Width 13.6 % Platelet Count 262 TH/MM3 Mean Platelet Volume 8.8 FL Neutrophils (%) (Auto) 72.9 % Lymphocytes (%) (Auto) 15.1 % Monocytes (%) (Auto) 9.9 % Eosinophils (%) (Auto) 1.3 % Basophils (%) (Auto) 0.8 % Neutrophils # (Auto) 5.0 TH/MM3 Lymphocytes # (Auto) 1.0 TH/MM3 Monocytes # (Auto) 0.7 TH/MM3 Eosinophils # (Auto) 0.1 TH/MM3 Basophils # (Auto) 0.1 TH/MM3 CBC Comment DIFF FINAL Differential Comment Prothrombin Time 10.4 SEC Prothromb Time International Ratio 0.9 RATIO Activated Partial Thromboplast Time 25.6 SEC Blood Urea Nitrogen 20 MG/DL Creatinine 0.81 MG/DL Random Glucose 94 MG/DL Calcium Level 9.1 MG/DL Magnesium Level 2.2 MG/DL Sodium Level 142 MEQ/L Potassium Level 3.8 MEQ/L Chloride Level 108 MEQ/L Carbon Dioxide Level 23.2 MEQ/L Anion Gap 11 MEQ/L Estimat Glomerular Filtration Rate 67 ML/MIN Total Creatine Kinase 36 U/L Troponin I LESS THAN 0.02 NG/ML MDM Medical Decision Making Medical Screen Exam Complete: Yes Emergency Medical Condition: Yes Medical Record Reviewed: Yes Interpretation(s) EKG shows normal sinus rhythm at a rate of 60 bpm. No signs of acute ST-T changes. Last 24 hours Impressions Cervical Spine CT 09/19/17 0854 Signed Impressions: Service Date/Time: Tuesday, September 19, 2017 18:46 - CONCLUSION: 1. No acute abnormality is seen. 2. Degenerative change as described above. Teja Carney MD Head CT 09/19/17 1746 Signed Impressions: Service Date/Time: Tuesday, September 19, 2017 18:46 - CONCLUSION: 1. No acute abnormality seen. 2. Age-related atrophy. 3. Suspected small vessel ischemic change in the white matter. Teja Carney MD Chest X-Ray 09/19/17 1608 Signed Impressions: Service Date/Time: Tuesday, September 19, 2017 16:23 - CONCLUSION: No acute disease. Luis M Maurice Jr., MD Laboratory Tests Test 09/19/17 17:45 Neutrophils (%) (Auto) 72.9 % (16.0-70.0) Monocytes (%) (Auto) 9.9 % (0.0-8.0) Blood Urea Nitrogen 20 MG/DL (7-18) Chloride Level 108 MEQ/L (98-107) Estimat Glomerular Filtration Rate 67 ML/MIN (>89) Troponin I LESS THAN 0.02 NG/ML Differential Diagnosis Syncope, hypertensive urgency: Rule out ACS versus intracranial bleeds versus metabolic issues versus dehydration Narrative Course CAT scan did not show any signs of acute cranial processes. Patient was given clonidine in the ER for her blood pressure. Lab work did not indicate significant cardiac enzymes elevation or metabolic issues. At this point, my plan would be to admit her for further evaluation and treatment. Case was discussed with family practice resident service for admission. Diagnosis Primary Impression: Pre-syncope Additional Impression: Hypertension Admitting Information Admitting Physician Requests: Admit Julito Purcell MD Sep 19, 2017 18:25
[2017-09-19 18:26] LABS: ANION GAP 11 MEQ/L (5-15); BICARBONATE 23.2 MEQ/L (21.0-32.0); BLOOD UREA NITROGEN 20 MG/DL (7-18); CHLORIDE 108 MEQ/L (98-107); GLOMERULAR FILTRATION RATE 67 ML/MIN (>89); MAGNESIUM 2.2 MG/DL (1.5-2.5); POTASSIUM 3.8 MEQ/L (3.5-5.1); SODIUM (NA) 142 MEQ/L (136-145)
[2017-09-19 18:31] LABS: APTT (PATIENT) 25.6 SEC (24.3-30.1); INTERNATIONAL NORMALIZED RATIO 0.9 RATIO; PROTHROMBIN TIME - PATIENT 10.4 SEC (9.8-11.6)
[2017-09-19 19:11] LABS: CREATINE KINASE 36 U/L (26-192)
[2017-09-19] MEDS ORDERED: cloNIDine HCL 0.2 MG TAB PO ONE (19:15)
--- NOTE | 2017-09-19 19:17 | RADRPT ---
EXAM DATE/TIME: 09/19/2017 18:46 [facility] COMPARISON: No previous studies available for comparison. INDICATIONS : Syncopal episode. RADIATION DOSE: 48.34 CTDIvol (mGy) MEDICAL HISTORY : Cardiovascular disease. Hypertension. SURGICAL HISTORY : Appendectomy. ENCOUNTER: Initial ACUITY: 1 day PAIN SCALE: 0/10 LOCATION: cranial TECHNIQUE: Multiple contiguous axial images were obtained of the head. Using automated exposure control and adj ustment of the mA and/or kV according to patient size, radiation dose was kept as low as reasonably a chievable to obtain optimal diagnostic quality images. DICOM format image data is available electro nically for review and comparison. FINDINGS: CEREBRUM: The ventricles and cortical sulci are mildly widened. There is low density seen posterior cerebral wh ite matter. No evidence of midline shift, mass lesion, hemorrhage or acute infarction. No extra-axi al fluid collections are seen. POSTERIOR FOSSA: The cerebellum and brainstem are intact. The 4th ventricle is midline. The cerebellopontine angle i s unremarkable. EXTRACRANIAL: The visualized portion of the orbits is intact. SKULL: The calvaria is intact. No evidence of skull fracture. CONCLUSION: 1. No acute abnormality seen. 2. Age-related atrophy. 3. Suspected small vessel ischemic change in the white matter. Teja Carney MD on September 19, 2017 at 19:14 Board Certified Radiologist. This report was verified electronically.
--- NOTE | 2017-09-19 19:22 | RADRPT ---
EXAM DATE/TIME: 09/19/2017 18:46 [facility] COMPARISON: No previous studies available for comparison. INDICATIONS : Neck pain. RADIATION DOSE: 36.28 CTDIvol (mGy) MEDICAL HISTORY : Cardiovascular disease. Hypertension. SURGICAL HISTORY : Appendectomy. ENCOUNTER: Initial ACUITY: 1 day PAIN SCALE: 3/10 LOCATION: neck TECHNIQUE: Volumetric scanning of the cervical spine was performed. Multiplanar reconstructions in the sagittal, coronal and oblique axial planes were performed. Using automated exposure control and adjustment o f the mA and/or kV according to patient size, radiation dose was kept as low as reasonably achievable to obtain optimal diagnostic quality images. DICOM format image data is available electronically f or review and comparison. FINDINGS: VERTEBRAE: Normal vertebral body height. ALIGNMENT: No evidence of subluxation. C2-C3: The disc demonstrates decreased height. Significant stenosis is not seen. There is right facet hypert rophy. The neuroforamina are patent. C3-C4: The disc demonstrates decreased height. Significant stenosis is not seen. There is mild left facet hy pertrophy. The neural foramina are patent. There is uncovertebral hypertrophy. C4-C5: The disc demonstrates decreased height. Significant stenosis is not seen. The neural foramina are pat ent. There is uncovertebral hypertrophy. C5-C6: The disc demonstrates decreased height. Significant stenosis is not seen. The patient is status post right laminectomy. There is uncovertebral hypertrophy. There is mild narrowing of the neural foramina . C6-C7: The disc demonstrates decreased height. Significant stenosis is not seen. The neural foramina are pat ent. C7-T1: The bony spinal canal is normal in size. No evidence of disc bulge or herniation. The neural forami na are bilaterally patent. CONCLUSION: 1. No acute abnormality is seen. 2. Degenerative change as described above. Teja Carney MD on September 19, 2017 at 19:16 Board Certified Radiologist. This report was verified electronically.
--- NOTE | 2017-09-19 19:44 | HHI.HP ---
[facility] Service Family Medicine Primary Care Physician Christian Posada MD Admission Diagnosis syncope/hypertensive urgency Diagnoses: Chief Complaint: "blacking out" International Travel<30 Days: No Contact w/Intl Traveler<30days: No History of Present Illness Patient is a 89-year-old female with past medical history of hypertension, third-degree A-V heart block who presents for near syncopal episodes. Patient reports that she's been having episodes of "blacking out". States it has happened 3x last week. One time, she was brushing her teeth. The other two times, she was sitting on her couch watching tv. She states that the episodes start with her feeling dizzy, headache and neck pain. Also endorses tachycardia at that time as well. Says that her head starts spinning and everything goes black for a little bit, she is unsure on the time period. She is unsure if she loses consciousness. Her has witnessed these episodes, denies any abnormal signs. She states the he doesn't recognize anything is wrong. States the episodes haven't changed, but have become more frequent. She has has had similar symptoms for about a year. Was hospitalized last October and found to have third degree AV heart block at that time. She was set up with slurry tank operator Dr. Herrera and started on several medications. Has not seen a slurry tank operator for several months. Denies any history of seizures. No biting of tongue. No bowel/ bladder incontinence. During episodes when she is standing, she does notice some weakness in her legs, which is going to fall. But no prolonged neurological symptoms. No numbness/tingling. No changes in speech. Has not fallen. Has any history of CVA or NE. She has checked her blood pressure home during these episodes and it has been elevated up to 200 systolic. (Deo Rea MD, R2) Review of Systems Constitutional: COMPLAINS OF: Dizziness, DENIES: Fever, Weight gain, Weight loss, Chills, Night Sweats Eyes: COMPLAINS OF: Double Vision, DENIES: Blurred vision, Vision loss Ears, nose, mouth, throat: DENIES: Hearing loss, Nasal discharge, Throat pain, Running Nose Respiratory: DENIES: Cough, Snoring, Shortness of breath Cardiovascular: DENIES: Chest pain, Palpitations, Lower Extremity Edema Gastrointestinal: DENIES: Abdominal pain, Constipation, Diarrhea, Nausea, Vomiting Genitourinary: COMPLAINS OF: Urinary frequency, DENIES: Urinary incontinence, Hematuria, Dysuria Musculoskeletal: COMPLAINS OF: Back pain, Neck pain, DENIES: Joint Swelling Integumentary: DENIES: Abnormal pigmentation, Pruritus, Rash Hematologic/lymphatic: DENIES: Bruising, Lymphadenopathy Neurologic: DENIES: Headache, Localized weakness, Paresthesias, Seizures, Speech Problems, Tremor Psychiatric: DENIES: Anxiety, Confusion, Mood changes (Deo Rea MD, R2) Past Family Social History Past Medical History HTN 3rd degree heart block symptomatic bradycardia Arthritis Past Surgical History Wrist Shoulder C-Spine Cataract Appendectomy Fallopian tubes Oophorectomy - "most of them" Reported Medications Reported Meds & Active Scripts Active Alprazolam 0.25 Mg Tab 0.25 Mg PO BID PRN Metoprolol tartrate 12.5mg BID Norvasc (Amlodipine Besylate) 5 Mg Tab 5 Mg PO DAILY Celebrex (Celecoxib) 200 Mg Cap 200 Mg PO DAILY Prempro Blister Pack (Estrogens Conj/Medroxyprogest Acet) 0.3-1.5 Mg Tab 1 Tab PO DAILY Reported Acetaminophen Pm Extra St (Diphenhydramine-Acetaminophen) 500-25 mg Tab (Deo Rea MD, R2) Allergies: Coded Allergies: metronidazole (Unverified Allergy, Intermediate, Rash, 09/19/17) Active Ordered Medications Active Medications Clonidine (Catapres) 0.2 mg ONCE ONCE PO Last administered on 09/19/17t 19:21 ; Admin Dose 0.2 MG; Start 09/19/17 at 19:15; Stop 09/19/17 at 19:16; Status DC Family History Dad: Stroke Mom: Alzheimers Sibs: Prostate CA Social History Lives in [facility]. Homemaker. Takes care of . EtOH: glass of wine or cocktail nightly Tob: 10 pack/yr smoker; quit in 1966 Illicits: None (Deo Rea MD, R2) Physical Exam Vital Signs Vital Signs Date Time Temp Pulse Resp B/P (MAP) Pulse Ox O2 Delivery O2 Flow Rate FiO2 09/19/17 17:31 66 19 205/81 (122) 97 Room Air 09/19/17 17:19 18 Room Air 09/19/17 15:58 98.2 75 16 225/105 (145) 98 Physical Exam GENERAL: This is a well-nourished, well-developed patient, in no apparent distress. SKIN: No rashes, ecchymoses or lesions. Cool and dry. HEAD: Atraumatic. Normocephalic. No temporal or scalp tenderness. EYES: Pupils equal round and reactive. Extraocular motions intact. No scleral icterus. No injection or drainage. ENT: Throat without erythema, tonsillar hypertrophy or exudate. Uvula midline. Airway patent. NECK: Trachea midline. No JVD or lymphadenopathy. Supple, nontender. CARDIOVASCULAR: Regular rate and rhythm without murmurs, gallops, or rubs. RESPIRATORY: Clear to auscultation. Breath sounds equal bilaterally. No wheezes , rales, or rhonchi. GASTROINTESTINAL: Abdomen soft, non-tender, nondistended. No hepato-splenomegaly , or palpable masses. No guarding. MUSCULOSKELETAL: Extremities without clubbing, cyanosis, or edema. No joint tenderness, effusion, or edema noted. No calf tenderness. NEUROLOGICAL: Awake and alert. Cranial nerves II through XII intact. Motor and sensory grossly within normal limits. No focal neuro deficit. Five out of 5 muscle strength in all muscle groups. Normal speech. Normal heel to gill and finger-to nose testing. Laboratory Laboratory Tests Test 09/19/17 17:45 White Blood Count 6.8 Red Blood Count 4.07 Hemoglobin 13.0 Hematocrit 38.9 Mean Corpuscular Volume 95.5 Mean Corpuscular Hemoglobin 31.9 Mean Corpuscular Hemoglobin Concent 33.4 Red Cell Distribution Width 13.6 Platelet Count 262 Mean Platelet Volume 8.8 Neutrophils (%) (Auto) 72.9 Lymphocytes (%) (Auto) 15.1 Monocytes (%) (Auto) 9.9 Eosinophils (%) (Auto) 1.3 Basophils (%) (Auto) 0.8 Neutrophils # (Auto) 5.0 Lymphocytes # (Auto) 1.0 Monocytes # (Auto) 0.7 Eosinophils # (Auto) 0.1 Basophils # (Auto) 0.1 CBC Comment DIFF FINAL Differential Comment Prothrombin Time 10.4 Prothromb Time International Ratio 0.9 Activated Partial Thromboplast Time 25.6 Blood Urea Nitrogen 20 Creatinine 0.81 Random Glucose 94 Calcium Level 9.1 Magnesium Level 2.2 Sodium Level 142 Potassium Level 3.8 Chloride Level 108 Carbon Dioxide Level 23.2 Anion Gap 11 Estimat Glomerular Filtration Rate 67 Total Creatine Kinase 36 Troponin I LESS THAN 0.02 (Deo Rea MD, R2) Result Diagram: 09/19/17174409/19/171744 Imaging Last Impressions Cervical Spine CT 09/19/171746 Signed Impressions: Service Date/Time: Tuesday, September 19, 2017 18:46 - CONCLUSION: 1. No acute abnormality is seen. 2. Degenerative change as described above. Teja Carney MD Head CT 09/19/171745 Signed Impressions: Service Date/Time: Tuesday, September 19, 2017 18:46 - CONCLUSION: 1. No acute abnormality seen. 2. Age-related atrophy. 3. Suspected small vessel ischemic change in the white matter. Teja Carney MD Chest X-Ray 09/19/17 1608 Signed Impressions: Service Date/Time: Tuesday, September 19, 2017 16:23 - CONCLUSION: No acute disease. Luis M Maurice Jr., MD Carotid Artery Ultrasound 09/19/17 0000 Signed Impressions: Service Date/Time: Tuesday, September 19, 2017 21:47 - CONCLUSION: Normal examination. Gabriel Goldman MD (Deo Rea MD, R2) Caprini VTE Risk Assessment Caprini VTE Risk Assessment: Mod/High Risk (score >= 2) Caprini Risk Assessment Model Point Value = 1 Point Value = 2 Point Value = 3 Point Value = 5 Age 41-60 Minor surgery BMI > 25 kg/m2 Swollen legs Varicose veins or History of unexplained or recurrent spontaneous Oral contraceptives or hormone replacement Sepsis (< 1 month) Serious lung disease, including pneumonia (< 1 month) Abnormal pulmonary function Acute myocardial infarction Congestive heart failure (< 1 month) History of inflammatory bowel disease Medical patient at bed rest Age 61-74 Arthroscopic surgery Major open surgery (> 45 min) Laparoscopic surgery (> 45 min) Malignancy Confined to bed (> 72 hours) Immobilizing plaster cast Central venous access Age >= 75 History of VTE Family history of VTE Factor V Leiden Prothrombin [id number] Lupus anticoagulant Anticardiolipin antibodies Elevated serum homocysteine Heparin-induced thrombocytopenia Other congenital or acquired thrombophilia Stroke (< 1 month) Elective arthroplasty Hip, pelvis, or leg fracture Acute spinal cord injury (< 1 month) Prophylaxis Regimen Total Risk Factor Score Risk Level Prophylaxis Regimen 0-1 Low Early ambulation 2 Moderate Order ONE of the following: *Sequential Compression Device (SCD) *Heparin 5000 units SQ BID 3-4 Higher Order ONE of the following medications: *Heparin 5000 units SQ TID *Enoxaparin/Lovenox 40 mg SQ daily (WT < 150 kg, CrCl > 30 mL/min) *Enoxaparin/Lovenox 30 mg SQ daily (WT < 150 kg, CrCl > 10-29 mL/min) *Enoxaparin/Lovenox 30 mg SQ BID (WT < 150 kg, CrCl > 30 mL/min) AND/OR *Sequential Compression Device (SCD) 5 or more Highest Order ONE of the following medications: *Heparin 5000 units SQ TID (Preferred with Epidurals) *Enoxaparin/Lovenox 40 mg SQ daily (WT < 150 kg, CrCl > 30 mL/min) *Enoxaparin/Lovenox 30 mg SQ daily (WT < 150 kg, CrCl > 10-29 mL/min) *Enoxaparin/Lovenox 30 mg SQ BID (WT < 150 kg, CrCl > 30 mL/min) AND *Sequential Compression Device (SCD) (Deo Rea MD, R2) Assessment and Plan Assessment and Plan 89-year-old female with history of third-degree heart block and hypertension presents with near syncopal episodes and elevated blood pressure. Symptoms most likely correlated with hypertensive urgency. No focal neurological deficits. We'll admit for management of blood pressure and workup for syncope. Code Status Full Discussed Condition With Dr. Pastor (Deo Rea MD, R2) Attending Attestation THIS CASE WAS DISCUSSED WITH THE RESIDENT PHYSICIANS. I HAVE REVIEWED THE RECORD AND AGREE WITH THE ABOVE NOTE AND PLAN OF CARE WAS DISCUSSED. I HAVE AUTHORIZED THE ORDER FOR ADMISSION TO AN IN-PATIENT STATUS. (Lyndsey Stock MD) Problem List: (1) Pre-syncope ICD Codes: R55 - Syncope and collapse Status: Acute Plan: Patient presenting with near syncopal episodes along with elevated blood pressure. No neurological deficit. Her symptoms may be related to hypertensive urgency. History of third-degree heart block may be contributing as well. Electrolytes wnl. BUN/Cr elevated, suggests dehydration EKG shows NSR. Head CT: no acute abnormality -Regular vitals with neuro checks -Telemetry -Orthostatic vital signs -Echo -US carotid arteries -Trend troponins and EKG (2) Hypertension ICD Codes: I10 - Essential (primary) hypertension Status: Acute Plan: BP 225/105 on admission. Pt symptomatic with these syncopal spells during the elevated BP. Pt on metoprolol and amlodipine at home. -Continue amlodipine -Hold metoprolol due to bradycardia at times -Permissive lowering of BP -Clonidine PRN SBP>170 or DBP>100 (3) Third degree AV block ICD Codes: I44.2 - Atrioventricular block, complete Status: Acute Plan: History of third-degree AV block diagnosed last October. EKG shows NSR. Pt endorses palpitations at times. Sees Dr. Herrera outpatient -Consult cardiology-appreciate recs -Continue amlodipine as above, hold on beta edgar due to bradycardia (4) Fluids, Electrolytes, and Nutrition Status: Acute Plan: Fluids: PO Electrolytes: wnl, continue to monitor DVT ppx: Heparin 5000u q12H (Deo Rea MD, R2) Physician Certification 2 Midnight Certification Type: Admission for Inpatient Services Order for Inpatient Services The services are ordered in accordance with Medicare regulations or non- Medicare payer requirements, as applicable. In the case of services not specified as inpatient-only, they are appropriately provided as inpatient services in accordance with the 2-midnight benchmark. Estimated LOS (days): 2 days is the estimated time the patient will need to remain in the hospital, assuming treatment plan goals are met and no additional complications. Post-Hospital Plan: Home (Deo Rea MD, R2) 2 Midnight Certification Type: Admission for Inpatient Services Post-Hospital Plan: Not yet determined (Lyndsey Stock MD) Problem Qualifiers (1) Hypertension: Qualified Codes: I10 - Essential (primary) hypertension Deo Rea MD, R2 Sep 19, 2017 19:44 Lyndsey Stock MD Sep 20, 2017 08:24
[2017-09-19] MEDS ORDERED: ALPRAZolam 0.25 MG TAB PO PRN (20:15)
[2017-09-19] MEDS ORDERED: cloNIDine HCL 0.1 MG TAB PO PRN (20:15)
[2017-09-19] MEDS ORDERED: SODIUM CHLORIDE 0.9% FLUSH 10 ML FLUSH IV FLUSH PRN (20:15)
[2017-09-19] MEDS: SODIUM CHLORIDE 0.9% FLUSH 10 ML FLUSH IV FLUSH SCH (21:00)
--- NOTE | 2017-09-19 23:00 | RADRPT ---
EXAM DATE/TIME: 09/19/2017 21:47 [facility] COMPARISON: No previous studies available for comparison. INDICATIONS : Syncope. MEDICAL HISTORY : Hypertension. Neck pain. Irregular heartbeat. Arthritis. SURGICAL HISTORY : Appendectomy. Tubal ligation. Bilateral cataract surgery. Oopherectomy. Right wrist surgery. Hemorr hoidectomy. ENCOUNTER: Initial ACUITY: 1 day PAIN SCORE: 3/10 LOCATION: Bilateral neck PEAK SYSTOLIC VELOCITIES (cm/sec): ICA/CCA RATIO: Right: 1.4 Left: 0.9 ICA: Right: 118.9 Left: 79.8 CCA: Right: 87.5 Left: 85.3 ECA: Right: 45.3 Left: 76.5 VERTEBRAL: Right: 75.4 antegrade Left: 73.2 antegrade Elevated flow velocities and ICA/CCA ratios have been found to correlate with increased degrees of vessel stenosis, calculated as percentage of diameter relative to a normal segment of distal ICA/CCA FINDINGS: RIGHT CAROTID: No significant stenosis is visualized. The waveforms are within normal limits. LEFT CAROTID: No significant stenosis is visualized. The waveforms are within normal limits. VERTEBRAL ARTERIES: Antegrade flow is seen in both vertebral arteries. MISCELLANEOUS: None. CONCLUSION: Normal examination. Gabriel Goldman MD on September 19, 2017 at 22:57 Board Certified Radiologist. This report was verified electronically.
[2017-09-20] VITALS (21 sets, daily range): BP systolic 141–154; BP diastolic 62–69; PULSE 54–78; RESP 16–20; TEMP 97.5–98; O2SAT 95–97
[2017-09-20] MEDS: HEPARIN SODIUM - SQ 10,000 UNITS/ML VIAL SQ SCH ×2 (00:40→07:50)
[2017-09-20 05:07] LABS: AUTOMATED NEUTROPHIL # 2.9 TH/MM3 (1.8-7.7); BASOPHIL # 0.1 TH/MM3 (0-0.2); EOSINOPHIL # 0.2 TH/MM3 (0-0.4); EOSINOPHIL % 3.1 % (0.0-4.0); HEMATOCRIT 34.2 % (35.0-46.0); HEMO FLAGS DIFF FINAL; LYMPH % 24.4 % (9.0-44.0); LYMPHOCYTE # 1.2 TH/MM3 (1.0-4.8); MEAN CELL VOLUME 94.2 FL (80.0-100.0); MEAN CORPUSCULAR HEMOGLOBIN 31.7 PG (27.0-34.0); MEAN CORPUSCULAR HGB CONC 33.7 % (32.0-36.0); NEUT % 57.5 % (16.0-70.0); PLATELET COUNT 237 TH/MM3 (150-450); RED BLOOD COUNT 3.63 MIL/MM3 (4.00-5.30); RED CELL DISTRIBUTION WIDTH 13.8 % (11.6-17.2)
[2017-09-20 05:29] LABS: ANION GAP 7 MEQ/L (5-15); BICARBONATE 23.9 MEQ/L (21.0-32.0); BLOOD UREA NITROGEN 18 MG/DL (7-18); CHLORIDE 112 MEQ/L (98-107); GLOMERULAR FILTRATION RATE 78 ML/MIN (>89); POTASSIUM 3.6 MEQ/L (3.5-5.1); SODIUM (NA) 143 MEQ/L (136-145)
[2017-09-20] MEDS: SODIUM CHLORIDE 0.9% FLUSH 10 ML FLUSH IV FLUSH SCH (07:51)
[2017-09-20] MEDS ORDERED: [UNRECOGNIZED DRUG - OTHER] PO SCH (09:00)
[2017-09-20] MEDS ORDERED: amLODIPine BESYLATE 5 MG TAB PO SCH (09:00)
[2017-09-20] MEDS ORDERED: METOPROLOL TARTRATE 25 MG TAB PO SCH (09:00)
[2017-09-20] MEDS ORDERED: CELECOXIB 200 MG CAP PO SCH (09:00)
[2017-09-20] MEDS ORDERED: LORazepam 1 MG TAB PO PRN (11:45)
[2017-09-20] MEDS ORDERED: LORazepam 2 MG TAB PO PRN (11:45)
[2017-09-20] MEDS ORDERED: FLUMAZENIL 0.5 MG/5 ML VIAL IV PUSH PRN (11:45)
[2017-09-20] MEDS ORDERED: LORazepam 2 MG/ML VIAL IV PUSH PRN ×4 (11:45)
--- NOTE | 2017-09-20 14:01 | HHI.FPPN ---
Problem Problem List: (1) Pre-syncope (2) Hypertension (3) Hyperlipidemia Subjective Subjective 89 year old woman that is patient of the [facility] [place], Dr. Posada is her PCP has h/o 3rd degree heart block diagnosis about 1 year ago -- had been seen by Dr. Herrera in the past and per the patient had pacemaker placed that was subsequently removed. According to the patient this was removed due to her not needing it and she was told she might need this in the future. She was sent to the ED after clinic visit yesterday where she reported h/o repeat episodes of "blacking out" -- described as lightheaded, dizzy and then goes black for a few seconds. No falls, no loss of consciousness, no seizure like activty and per her he does not notice any change in her during these episodes. At the time of the exam today the patient reports her symptoms have fully resolved. 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 She denies CP, SOB, LEONARD or palpitation or any "black out" episodes. Please see the resident note and documentation regarding her PMH/PSH/SOCIAL/ MEDS. ROS is negative except as listed above Hospital Objective Objective Last Impressions Cervical Spine CT 09/19/171746 Signed Impressions: Service Date/Time: Tuesday, September 19, 2017 18:46 - CONCLUSION: 1. No acute abnormality is seen. 2. Degenerative change as described above. Teja Carney MD Head CT 09/19/176 Signed Impressions: Service Date/Time: Tuesday, September 19, 2017 18:46 - CONCLUSION: 1. No acute abnormality seen. 2. Age-related atrophy. 3. Suspected small vessel ischemic change in the white matter. Teja Carney MD Chest X-Ray 09/19/17 1608 Signed Impressions: Service Date/Time: Tuesday, September 19, 2017 16:23 - CONCLUSION: No acute disease. Luis M Maurice Jr., MD Carotid Artery Ultrasound 09/19/17 0000 Signed Impressions: Service Date/Time: Tuesday, September 19, 2017 21:47 - CONCLUSION: Normal examination. Gabriel Goldman MD Laboratory Tests - Abnormals Test 09/19/17 17:45 09/19/17 21:00 09/20/17 04:28 Neutrophils (%) (Auto) 72.9 % Monocytes (%) (Auto) 9.9 % 14.0 % Blood Urea Nitrogen 20 MG/DL Chloride Level 108 MEQ/L 112 MEQ/L Estimat Glomerular Filtration Rate 67 ML/MIN 78 ML/MIN Troponin I LESS THAN 0.02 NG/ML LESS THAN 0.02 NG/ML Red Blood Count 3.63 MIL/MM3 Hemoglobin 11.5 GM/DL Hematocrit 34.2 % Vital Signs 09/19/17 09/19/17 09/19/17 09/19/17 15:58 17:19 17:31 19:40 Temp 98.2 Pulse 75 66 79 Resp 16 18 19 18 B/P (MAP) 225/105 (145) 205/81 (122) 198/78 (118) Pulse Ox 98 97 99 O2 Delivery Room Air Room Air Room Air 09/19/17 09/19/17 09/19/17 09/19/17 20:11 21:08 21:36 21:52 Temp 98.0 Pulse 89 66 63 Resp 18 17 B/P (MAP) 166/74 (104) 116/56 (76) Pulse Ox 99 94 O2 Delivery Room Air 09/19/17 09/19/17 09/19/17 09/20/17 22:00 23:20 23:50 00:00 Temp 98.1 Pulse 60 58 78 54 Resp 16 B/P (MAP) 163/72 (102) Pulse Ox 99 09/20/17 09/20/17 09/20/17 09/20/17 01:10 02:50 03:38 03:57 Temp 97.5 Pulse 63 66 58 67 Resp 16 B/P (MAP) 148/65 (92) Pulse Ox 95 09/20/17 09/20/17 09/20/17 09/20/17 04:19 05:10 06:16 07:00 Pulse 60 59 57 78 09/20/17 09/20/17 09/20/17 09/20/17 08:00 08:01 09:00 10:00 Temp 98.0 Pulse 66 62 74 72 Resp 18 B/P (MAP) 154/69 (97) Pulse Ox 97 09/20/17 09/20/17 09/20/17 11:00 11:30 12:01 Temp 97.9 Pulse 70 71 64 Resp 20 B/P (MAP) 141/62 (88) Pulse Ox 97 Physical exam O. CONSTITUTIONAL/GEN: normally nourished, in NAD. EYES: conjunctiva normal, PERRLA, EOMI. ENT: Mouth and pharynx normal. NECK: thyroid midline, carotids symmetrical, no bruits or JVD LUNGS: clear A-P, respiratory effort is normal. CARDIOVASCULAR: RR without murmur or gallop. No significant edema. GI/ABD: soft without masses, without organomegaly. : no CVA tenderness NEURO: No focal deficit SKIN: color normal, no rashes noted. HEME/LYMPH: no bruising, petechia or significant adenopathy MUSC: back is normal in appearance. Extremities are normal in appearance. PSYCH/MENTAL STATUS: Alert and oriented x 3. Assessment Assessment: (1) Pre-syncope (2) Hypertension Assessment 89 year old female with h/o 3rd degree heart block and pacemaker placement and removal 1 year prior with pre-syncopal episodes that have resolved since admission. Work up thus far has been non-revealing. Echo is still pending, EKG showing sinus rachel but I do appreciate a P wave before the QRS complex so I do not think this is 3rd degree block or a junctional or escape rhythm. Patients only treatment thus far in the hospital has been to hold her home Bblocker and keep her on norvasc alone. I suspect based on the information thus far that this may have been related to symptomatic bradycardia from the bblocker or possibly could be due to some sort of electrical conduction issue that was exacerbated by the bblocker. PLAN PLAN Echo and cardiology consult not completed but patient symptoms have resolved and she is stable. This workup can be completed as an outpatient. Would rec to continue Norvasc only and NOT the Beta-Carol on discharge with close fu in the clinic with her PCP, Dr. Posada in 1-2 weeks. \\ Patient is agreeable to this plan. Patient was seen and discussed with the resident team - Dr. Posada and Dr. Selvin Stock,Lyndsey Danielle MD Sep 20, 2017 14:01
--- NOTE | 2017-09-20 14:07 | EKG ---
Date Performed: 09/20/2017 Time Performed: 03:59:50 PTAGE: 89 years EKG: Sinus bradycardia Right bundle branch block Abnormal ECG PREVIOUS TRACING : 09/19/2017 21.06 Compared to prior tracing no significant change DOCTOR: Francisco Lyn Interpretating Date/Time 09/20/2017 14:03:46
--- NOTE | 2017-09-20 14:14 | EKG ---
Date Performed: 09/19/2017 Time Performed: 21:06:27 PTAGE: 89 years EKG: Sinus rhythm POSSIBLE RIGHT VENTRICULAR CONDUCTION DELAY PROLONGED QT INTERVAL ABNORMAL ECG PREVIOUS TRACING : 09/19/2017 17.49 Compared to prior tracing no significant change DOCTOR: Francisco Lyn Interpretating Date/Time 09/20/2017 14:10:13
--- NOTE | 2017-09-20 14:20 | EKG ---
Date Performed: 09/19/2017 Time Performed: 17:49:12 PTAGE: 89 years EKG: Sinus rhythm RIGHT BUNDLE BRANCH BLOCK ABNORMAL ECG PREVIOUS TRACING : 11/07/2016 18.49 Compared to prior tracing no significant change DOCTOR: Farncisco Lyn Interpretating Date/Time 09/20/2017 14:14:09
--- NOTE | 2017-09-20 14:40 | HHI.DCPOC ---
Discharge Care Plan Diagnosis: (1) Bradycardia (2) Pre-syncope Goals to Promote Your Health * To prevent worsening of your condition and complications * To maintain your health at the optimal level Directions to Meet Your Goals Take your medications as prescribed Follow your dietary instruction Follow activity as directed Keep your appointments as scheduled Take your immunizations and boosters as scheduled If your symptoms worsen call your PCP, if no PCP go to Urgent Care Center or Emergency Room Smoking is Dangerous to Your Health. Avoid second hand smoke Call the 24-hour hour crisis hotline for domestic abuse at Gabriela Montalvo MD, R1 Sep 20, 2017 14:40
--- NOTE | 2017-09-20 18:19 | MB ---
cc: MARÍA MCKEON M.D. DATE OF CONSULTATION 09/20/2017 Electrophysiology consult REASON FOR CONSULTATION AV block, third degree AV block and uncompensated high blood pressure. HISTORY OF THE PRESENT ILLNESS Mrs. Hyman is an 89-year-old female with history of high blood pressure, arthritis, bradycardia, admitted to the emergency room due to a episode of dizziness and near syncope. She was found with high blood pressure. There was a diagnosis of third degree AV block. The systolic blood pressure was over 200. I was consulted for further evaluation and management. The chart was reviewed. The patient was evaluated. ALLERGIES METRONIDAZOLE. SOCIAL HISTORY The patient denies smoking. Has a drink every night. FAMILY HISTORY Noncontributory to her current medical condition. MEDICATIONS AT HOME 1. She is on alprazolam. 2. Metoprolol. 3. Norvasc. 4. Celebrex. 5. Prempro. REVIEW OF SYSTEMS Currently she refers no chest pain. No chest discomfort. No vomiting. No fever. PHYSICAL EXAMINATION GENERAL: Alert, fully oriented. Pleasant. VITAL SIGNS: Blood pressure 150/69, pulse 68, respiratory rate 18. LUNGS: Ventilated. CARDIOVASCULAR: S1-S2. No gallops. No murmur. ABDOMEN: Soft. No masses. No bruit. EXTREMITIES: No edema. Electrocardiogram sinus rhythm. No acute ST and T-wave changes. LABORATORY DATA Hemoglobin is 11.5, white blood cell 5.0. Potassium 3.6, creatinine 0.71. Troponin less than 0.02. TSH 2.29. ASSESSMENT AND RECOMMENDATIONS Mrs. Hyman has uncompensated high blood pressure, blood pressure control. There is a diagnosis of third degree AV block. I can find no tracing even from the ER where the third degree AV block was documented. All the telemetry tracing shows sinus rhythm. The metoprolol was discontinued. She is very anxious. She is living by herself with her 94-year-old . She wants to go home. At this point my recommendation, because there is no AV block recorded since hospitalization and the patient doing well, blood pressure is adequate, she can be discharged home and follow as an outpatient. If necessary I will put her on 30 day monitor for her. If there is any bradycardia it may be most likely due to a beta-edgar. It was discontinued. As mentioned before I will follow her as an outpatient. She cannot keep up with an appointment because of her 's condition. But she promised to follow with me at the office. She will be discharged home. MD HELLEN Gonsales/KK /5:31 PM /5:59 PM
== END 2017-09-20 16:34 | disposition home or self-care (01) | DRG 312 ==
LOC: NEPC 15:55 → NEDA 19:36 → HCPC 21:20
PROVIDERS: ADMIT Family Medicine; ATTEND Family Medicine
DX: R55 Syncope and collapse (principal); I10 Essential (primary) hypertension; I16.0 Hypertensive urgency; M19.90 Unspecified osteoarthritis, unspecified site; E78.5 Hyperlipidemia, unspecified; Z87.891 Personal history of nicotine dependence
CPT/HCPCS: 70450; 71020; 72125; 80048; 82550; 83735; 84443; 84484; 85025; 85610; 85730; 93005; 93880; J1644

== ENCOUNTER 2017-09-27 12:32 | Inpatient (IN) | payer MEDICARE, OTHER ==
[2017-09-27] VITALS (12 sets, daily range): BP systolic 118–222; BP diastolic 54–84; PULSE 37–85; RESP 16–39; TEMP 97.6–99.4; O2SAT 96–100
[~2017-09-27] VITALS: Ht 162.6 cm; Wt 55.4 kg
[~2017-09-27 12:32] MED LIST changes: +ACET25TA4; -DIPH1TAB36 PO; -METO1TAB42 PO
--- NOTE | 2017-09-27 12:48 | PD ---
HPI Chief Complaint: Chest Pain Time Seen by Provider: 12:41 Travel History International Travel<30 days: No Contact w/Intl Traveler<30days: No Traveled to known affect area: No History of Present Illness HPI 89 YO F presents to the ED for evaluation of PFSH Past Medical History Arthritis: Yes Anxiety: Yes Heart Rhythm Problems: Yes Cancer: No Cardiovascular Problems: Yes Diabetes: No Endocrine: No Genitourinary: No Hepatitis: No Hiatal Hernia: No Hypertension: Yes Immune Disorder: No Implanted Vascular Access Dvce: Yes Musculoskeletal: Yes (NECK, BACK, ARTHRITIES) Neurologic: No Psychiatric: No Respiratory: No Thyroid Disease: No Menopausal: Yes Past Surgical History Abdominal Surgery: Yes (APPY) AICD: No Appendectomy: Yes Body Medical Devices: LEFT SHOULDER WITH SCREW Eye Surgery: Yes (BILAT CATARACT SURG) Gynecologic Surgery: Yes (TUBES AND 1 OVARY REMOVED) Joint Replacement: No Pacemaker: No Other Surgery: Yes (HEMORRHOIDECTOMY) Social History Alcohol Use: Yes (1 DRINK DAILY) Tobacco Use: No Substance Use: No Allergies-Medications (Allergen,Severity, Reaction): Coded Allergies: metronidazole (Unverified Allergy, Intermediate, Rash, 09/27/17) Reported Meds & Prescriptions Reported Meds & Active Scripts Active Alprazolam 0.25 Mg Tab 0.25 Mg PO BID PRN Norvasc (Amlodipine Besylate) 5 Mg Tab 5 Mg PO DAILY Celebrex (Celecoxib) 200 Mg Cap 200 Mg PO DAILY Prempro Blister Pack (Estrogens Conj/Medroxyprogest Acet) 0.3-1.5 Mg Tab 1 Tab PO DAILY Reported Acetaminophen Pm Extra St (Diphenhydramine-Acetaminophen) 500-25 mg Tab Data Data Last Documented VS Vital Signs Date Time Temp Pulse Resp B/P (MAP) Pulse Ox O2 Delivery O2 Flow Rate FiO2 09/27/17 12:54 128/72 (90) 189/79 (115) 09/27/17 12:42 37 20 98 Room Air 09/27/17 12:37 97.6 Orders Orders Electrocardiogram (09/27/17 12:46) Ckmb (Isoenzyme) Profile (09/27/17 12:46) Complete Blood Count With Diff (09/27/17 12:46) Comprehensive Metabolic Panel (09/27/17 12:46) Magnesium (Mg) (09/27/17 12:46) Prothrombin Time / Inr (Pt) (09/27/17 12:46) Act Partial Throm Time (Ptt) (09/27/17 12:46) Troponin I (09/27/17 12:46) Chest, Single Ap (09/27/17 12:46) Ecg Monitoring (09/27/17 12:46) Bilateral Bp Monitoring (09/27/17 12:46) Iv Access Insert/Monitor (09/27/17 12:46) Oximetry (09/27/17 12:46) Sodium Chloride 0.9% Flush (Ns Flush) (09/27/17 13:00) Gifty Sánchez Sep 27, 2017 12:47
[2017-09-27] MEDS ORDERED: SODIUM CHLORIDE 0.9% FLUSH 10 ML FLUSH IVF PRN (13:00)
--- NOTE | 2017-09-27 13:07 | PD ---
HPI Chief Complaint: Chest Pain Time Seen by Provider: 12:41 Travel History International Travel<30 days: No Contact w/Intl Traveler<30days: No Traveled to known affect area: No History of Present Illness HPI 89-year-old female came to the emergency room sent by her primary care doctor for irregular heartbeat. Patient was admitted in the hospital about a week ago and discharge. Patient was seen by Dr. Herrera before the discharge and the plan was to get her on a Holter monitor once he would see her in his office. However patient has not been feeling too good and went to see her primary care when they did an EKG and noticed this irregular heartbeat. Patient is awake and answering questions. She has vital signs that are stable except for her heart rate is in the 30s. She is complaining of some left-sided dull chest pain. No radiation of the pain. Pain is worse on exertion. Some shortness of breath as well. PFSH Past Medical History Narrative Medical List of her past medical, surgical, social and family history is reviewed from the nursing note. Arthritis: Yes Anxiety: Yes Heart Rhythm Problems: Yes Cancer: No Cardiovascular Problems: Yes Diabetes: No Diminished Hearing: No Endocrine: No Genitourinary: No Hepatitis: No Hiatal Hernia: No Hypertension: Yes Immune Disorder: No Implanted Vascular Access Dvce: Yes Medical other: Yes (MOTION SICKNESS) Musculoskeletal: Yes (NECK, BACK, ARTHRITIES) Neurologic: No Psychiatric: No Respiratory: No Thyroid Disease: No Influenza Vaccination: Yes Menopausal: Yes : 1 Para: 1 Miscarriage: 0 : 0 Tubal Ligation: Yes (and ovaries) Past Surgical History Abdominal Surgery: Yes AICD: No Appendectomy: Yes Body Medical Devices: LEFT SHOULDER WITH SCREW Eye Surgery: Yes (BILAT CATARACT SURG) Gynecologic Surgery: Yes (TUBES AND 1 OVARY REMOVED) Joint Replacement: No Pacemaker: No Other Surgery: Yes (HEMORRHOIDECTOMY) Social History Alcohol Use: Yes (1 DRINK DAILY) Tobacco Use: No Substance Use: No Allergies-Medications (Allergen,Severity, Reaction): Coded Allergies: metronidazole (Unverified Allergy, Intermediate, Rash, 09/27/17) Comments List of allergies reviewed from the nursing note. Reported Meds & Prescriptions Reported Meds & Active Scripts Active Alprazolam 0.25 Mg Tab 0.25 Mg PO BID PRN Norvasc (Amlodipine Besylate) 5 Mg Tab 5 Mg PO DAILY Celebrex (Celecoxib) 200 Mg Cap 200 Mg PO DAILY Prempro Blister Pack (Estrogens Conj/Medroxyprogest Acet) 0.3-1.5 Mg Tab 1 Tab PO DAILY Reported Acetaminophen Pm Extra St (Diphenhydramine-Acetaminophen) 500-25 mg Tab Narrative Medication List of her home medications reviewed from the nursing note. Review of Systems Except as stated in HPI: all other systems reviewed are Neg Neurologic: Positive: Weakness Physical Exam Narrative GENERAL: Awake, alert, elderly, frail, moderate distress SKIN: Focused skin assessment warm/dry. HEAD: Atraumatic. Normocephalic. EYES: Pupils equal and round. No scleral icterus. No injection or drainage. ENT: No nasal bleeding or discharge. Mucous membranes pink and moist. NECK: Trachea midline. No JVD. CARDIOVASCULAR: Regular rate and rhythm. Bradycardia. No murmur appreciated. RESPIRATORY: No accessory muscle use. Clear to auscultation. Breath sounds equal bilaterally. GASTROINTESTINAL: Abdomen soft, non-tender, nondistended. Hepatic and splenic margins not palpable. MUSCULOSKELETAL: No obvious deformities. No clubbing. No cyanosis. No edema. NEUROLOGICAL: Awake and alert. No obvious cranial nerve deficits. Motor grossly within normal limits. Normal speech. PSYCHIATRIC: Appropriate mood and affect; insight and judgment normal. Data Data Last Documented VS Vital Signs Date Time Temp Pulse Resp B/P (MAP) Pulse Ox O2 Delivery O2 Flow Rate FiO2 09/27/17 13:17 70 09/27/17 12:54 128/72 (90) 189/79 (115) 09/27/17 12:42 20 98 Room Air 09/27/17 12:37 97.6 Orders Orders Electrocardiogram (09/27/17 12:46) Ckmb (Isoenzyme) Profile (09/27/17 12:46) Complete Blood Count With Diff (09/27/17 12:46) Comprehensive Metabolic Panel (09/27/17 12:46) Magnesium (Mg) (09/27/17 12:46) Prothrombin Time / Inr (Pt) (09/27/17 12:46) Act Partial Throm Time (Ptt) (09/27/17 12:46) Troponin I (09/27/17 12:46) Chest, Single Ap (09/27/17 12:46) Ecg Monitoring (09/27/17 12:46) Bilateral Bp Monitoring (09/27/17 12:46) Iv Access Insert/Monitor (09/27/17 12:46) Oximetry (09/27/17 12:46) Sodium Chloride 0.9% Flush (Ns Flush) (09/27/17 13:00) I-Stat Profile (09/27/17 13:10) Fentanyl Inj (Fentanyl Inj) (09/27/17 13:30) Midazolam Inj (Versed Inj) (09/27/17 13:30) Midazolam Inj (Versed Inj) (09/27/17 13:17) Fentanyl Inj (Fentanyl Inj) (09/27/17 13:30) Admit Order (Ed Use Only) (09/27/17 13:08) Consult Cardiology (09/27/17 ) I-Stat Creatinine (09/27/17 13:15) Labs Laboratory Tests Test 09/27/17 13:15 White Blood Count 10.2 TH/MM3 Red Blood Count 4.22 MIL/MM3 Hemoglobin 13.3 GM/DL Bedside Hemoglobin 13.3 G/DL Hematocrit 40.8 % Bedside Hematocrit 39.0 % Mean Corpuscular Volume 96.5 FL Mean Corpuscular Hemoglobin 31.6 PG Mean Corpuscular Hemoglobin Concent 32.7 % Red Cell Distribution Width 14.1 % Platelet Count 292 TH/MM3 Mean Platelet Volume 9.4 FL Neutrophils (%) (Auto) 73.6 % Lymphocytes (%) (Auto) 15.6 % Monocytes (%) (Auto) 9.4 % Eosinophils (%) (Auto) 0.6 % Basophils (%) (Auto) 0.8 % Neutrophils # (Auto) 7.5 TH/MM3 Lymphocytes # (Auto) 1.6 TH/MM3 Monocytes # (Auto) 1.0 TH/MM3 Eosinophils # (Auto) 0.1 TH/MM3 Basophils # (Auto) 0.1 TH/MM3 CBC Comment DIFF FINAL Differential Comment Prothrombin Time 10.3 SEC Prothromb Time International Ratio 0.9 RATIO Activated Partial Thromboplast Time 24.1 SEC Bedside Sodium 143 MMOL/L Blood Urea Nitrogen 27 MG/DL Creatinine 0.97 MG/DL Random Glucose 94 MG/DL Albumin 3.5 GM/DL Calcium Level 8.6 MG/DL Magnesium Level 2.1 MG/DL Aspartate Amino Transf (AST/SGOT) 20 U/L Alanine Aminotransferase (ALT/SGPT) 18 U/L Sodium Level 140 MEQ/L Potassium Level 4.2 MEQ/L Chloride Level 111 MEQ/L Carbon Dioxide Level 16.8 MEQ/L Bedside Potassium 4.2 MMOL/L Bedside Chloride 111 MMOL/L Anion Gap 12 MEQ/L Bedside Blood Urea Nitrogen 29 MG/DL Bedside Creatinine 0.8 MG/DL Estimat Glomerular Filtration Rate 54 ML/MIN Bedside Glucose 99 MG/DL MDM Medical Decision Making Medical Screen Exam Complete: Yes Emergency Medical Condition: Yes Medical Record Reviewed: Yes Interpretation(s) twelve-lead EKG was reviewed by me. Third degree AV block with peaked T waves. Heart rate of 37 bpm. Differential Diagnosis Third degree AV block, ACS Narrative Course 2:30 PM once the EKG was read by me immediately put the patient on an external pacer. Patient was given IV fentanyl and versed as conscious sedation to some extent and the pacing was started. Currently patient is being paced add 80 mA at 60 bpm. I discussed with Dr. Herrera and he will consult on the patient. I discussed the case with Dr. Anaya from ICU who has accepted the patient. Patient is on a Versed drip. She seems to be tolerating it well for now. Critical Care Narrative Aggregate critical care time was 60 minutes. Time to perform other separately billable procedures was not included in the critical care time. My time did not include minutes spent treating any other patients simultaneously or on activities that did not directly contribute to the patient's treatment. The services I provided to this patient were to treat and/or prevent clinically significant deterioration that could result in: Third degree AV block, external pacing, conscious sedation, Versed drip I provided critical care services requiring my management, as noted below: Chart data review, documentation time, medication orders and management, vital sign assessments/reviewing monitor data, ordering and reviewing lab tests, ordering and interpreting/reviewing x-rays and diagnostic studies, care of the patient and discussion of the patient with the admitting physicians. Procedures Procedure Narrative After the risks and benefits were discussed the following procedure was performed: MODERATE SEDATION: The patient was placed on a lead worker of housekeeping and laundry and pulse oximetry. An ambu bag and suction was immediately available at bedside. The patient was monitored by the nurse. Oxygen saturation , heart rate and blood pressure were monitored. Procedural sedation was acheived using IV Versed 3 mg and IV fentanyl 50 g. The patient was observed until awake and alert. Procedural Sedation time in attendance was 20 minutes. External pacing was done for the third degree AV block. [place] tingly and swollen is selected and rate of 60 bpm was selected. Near 100% capture was noticed on the monitor. EKG Prior to Arrival: No Physician Communication Physician Communication Dr. Anaya, Dr. Herrera Diagnosis Primary Impression: Third degree AV block Lucas Mcghee MD Sep 27, 2017 13:07
--- NOTE | 2017-09-27 13:15 | RADRPT ---
EXAM DATE/TIME: 09/27/2017 11:57 [facility] COMPARISON: CHEST SINGLE AP, November 07, 2016, 11:58. INDICATIONS : Chest pain and blood pressure problems, sent by doctor MEDICAL HISTORY : Hypertension. SURGICAL HISTORY : pacemaker placement and removal ENCOUNTER: Initial ACUITY: 1 day PAIN SCORE: 4/10 LOCATION: Bilateral chest FINDINGS: A single view of the chest demonstrates the lungs to be symmetrically aerated without evidence of mas s, infiltrate or effusion. The cardiomediastinal contours are unremarkable. Osseous structures are intact. CONCLUSION: Normal examination. Reverse left shoulder total arthroplasty. Christian Roberts MD on September 27, 2017 at 13:13 Board Certified Radiologist. This report was verified electronically.
[2017-09-27] MEDS ORDERED: MIDAZOLAM HCL 5 MG/ML VIAL (1 ML) ONE (13:17)
[2017-09-27 13:29] LABS: AUTOMATED NEUTROPHIL # 7.5 TH/MM3 (1.8-7.7); BASOPHIL # 0.1 TH/MM3 (0-0.2); BASOPHIL % 0.8 % (0.0-2.0); EOSINOPHIL # 0.1 TH/MM3 (0-0.4); EOSINOPHIL % 0.6 % (0.0-4.0); HEMATOCRIT 40.8 % (35.0-46.0); HEMO FLAGS DIFF FINAL; LYMPH % 15.6 % (9.0-44.0); LYMPHOCYTE # 1.6 TH/MM3 (1.0-4.8); MEAN CELL VOLUME 96.5 FL (80.0-100.0); MEAN CORPUSCULAR HEMOGLOBIN 31.6 PG (27.0-34.0); MEAN CORPUSCULAR HGB CONC 32.7 % (32.0-36.0); MONO % 9.4 % (0.0-8.0); NEUT % 73.6 % (16.0-70.0); PLATELET COUNT 292 TH/MM3 (150-450); RED BLOOD COUNT 4.22 MIL/MM3 (4.00-5.30); RED CELL DISTRIBUTION WIDTH 14.1 % (11.6-17.2); WHITE BLOOD COUNT 10.2 TH/MM3 (4.0-11.0)
[2017-09-27] MEDS ORDERED: MIDAZOLAM HCL 2 MG/2 ML VIAL IV PUSH ONE (13:30)
[2017-09-27 13:35] LABS: I-STAT POTASSIUM 4.2 MMOL/L (3.5-4.9)
[2017-09-27 13:39] LABS: INTERNATIONAL NORMALIZED RATIO 0.9 RATIO; PROTHROMBIN TIME - PATIENT 10.3 SEC (9.8-11.6)
[2017-09-27 13:42] LABS: APTT (PATIENT) 24.1 SEC (24.3-30.1)
[2017-09-27] MEDS ORDERED: MIDAZOLAM 100 MG/100 ML INJ 100 ML IV PRN (14:15)
[2017-09-27 14:27] LABS: ALT (GPT) 18 U/L (10-53); ANION GAP 12 MEQ/L (5-15); AST (GOT) 20 U/L (15-37); BICARBONATE 16.8 MEQ/L (21.0-32.0); BLOOD UREA NITROGEN 27 MG/DL (7-18); CHLORIDE 111 MEQ/L (98-107); GLOMERULAR FILTRATION RATE 54 ML/MIN (>89); MAGNESIUM 2.1 MG/DL (1.5-2.5); SODIUM (NA) 140 MEQ/L (136-145)
[2017-09-27 14:29] LABS: POTASSIUM 4.2 MEQ/L (3.5-5.1)
[2017-09-27 14:35] LABS: ALKALINE PHOSPHATASE 38 U/L (45-117)
[2017-09-27 14:36] LABS: CREATINE KINASE 50 U/L (26-192)
[2017-09-27] MEDS ORDERED: BISACODYL 10 MG SUPP RECTAL PRN (15:15)
[2017-09-27] MEDS ORDERED: RESP: ALBUTEROL 2.5 MG/IPRATROPIUM 0.5 MG NEB (PRN) INH (15:15)
[2017-09-27] MEDS ORDERED: MAGNESIUM HYDROXIDE SUSP 30 ML CUP PO PRN (15:15)
[2017-09-27] MEDS ORDERED: CHLORHEXIDINE GLUCONATE 2 % 1 PACK (2 CLOTHS) TOP PRN (15:15)
[2017-09-27] MEDS ORDERED: SENNOSIDES 8.6 MG TAB PO PRN (15:15)
[2017-09-27] MEDS ORDERED: LACTULOSE SYRUP 20 GM/30 ML CUP PO PRN (15:15)
[2017-09-27] MEDS ORDERED: MISCELLANEOUS NURSING INFORMATION XX SCH (15:15)
[2017-09-27] MEDS ORDERED: GLUCAGON 1 MG/ML VIAL OTHER PRN (15:30)
[2017-09-27] MEDS ORDERED: DEXTROSE 50% IN WATER 50 ML VIAL(D50) IV PUSH PRN (15:30)
[2017-09-27] MEDS ORDERED: MORPHINE SULFATE 2 MG/ML INJ IV PRN (16:00)
[2017-09-27] MEDS: RESP: ALBUTEROL 2.5 MG/IPRATROPIUM 0.5 MG NEB (SCH) INH ×2 (16:00→20:10)
[2017-09-27] MEDS: INSULIN NovoLIN REGULAR SUPPLEMENTAL SCALE SQ SCH ×2 (16:00→20:00)
--- NOTE | 2017-09-27 16:02 | MH ---
cc: ELI BHAKTA M.D. DATE OF ADMISSION 09/27/2017 DATE OF 1925 HISTORY OF THE PRESENT ILLNESS The patient is an 89-year-old female with past medical history of hypertension, arthritis who presented to [facility] ED for irregular heartbeat. She was recently discharged after she was admitted a week ago for presyncopal episode and bradycardia which was thought related to her beta edgar. The patient was seen by Dr. Herrera prior to discharge and plan was to get her on Holter monitor. On arrival to the ED the patient was bradycardic with heart rate in the 30s and her 12-lead EKG in the ER showed a third degree AV block with peaked T-waves at a rate of 37 beats per minute. The patient was subsequently placed on external pacer paced at 60. She was given IV fentanyl and Versed prior to external pacing. She is currently being paced at 80 milliamps at [address] Herrera was notified by ED and plans to see the patient soon. When seen the patient is on 4 liters nasal cannula, O2 saturation 98% and blood pressure 124/56. She reports some chest heaviness. The patient denies any shortness of breath, orthopnea, PND or edema of lower extremities. In addition she denies any dizziness, lightheadedness. PAST MEDICAL HISTORY 1. Hypertension. 2. Complete heart block. 3. Arthritis. PAST SURGICAL HISTORY 1. Previous appendectomy. 2. Previous cataract surgery. 3. Wrist, shoulder and C-spine surgery. ALLERGIES FLAGYL. SOCIAL HISTORY Nonsmoker. FAMILY HISTORY Noncontributory. CURRENT MEDICATIONS 1. Norvasc. 2. Celebrex. 3. Alprazolam. REVIEW OF SYSTEMS As per HPI the rest of the review of symptoms is unremarkable. PHYSICAL EXAMINATION GENERAL: An 89-year-old female lying in bed in no acute distress. VITAL SIGNS: Afebrile, temperature 97.6. Pulse 60, externally paced. Blood pressure 124/56, saturation 93-98% on 4 liters oxygen. HEENT: Atraumatic, normocephalic. Pupils equal, round and reactive to light and accommodation. Extraocular muscles intact. Conjunctivae pink. Nonicteric sclerae. Oral mucosa within normal. NECK: Supple. No JVD, adenopathy, thyromegaly. Trachea midline. CARDIOVASCULAR: Bradycardic. Normal S1-S2. No murmurs, rubs or gallops noted. LUNGS: Pulmonary examination bilateral equal air entry. No rales or wheezing. ABDOMEN: Soft, nontender, no distension. Positive bowel sounds. EXTREMITIES: No cyanosis, clubbing or edema. NEUROLOGIC: No focal sensory deficit. IMAGING Radiographic studies, a chest x-ray in the ED showed reverse left shoulder total arthroplasty. No acute cardiopulmonary findings. LABORATORY DATA WBC 10, hemoglobin 13.3, hematocrit 40, platelet count of 292. Sodium 143, potassium 4.2, chloride 111, CO2 16.8, BUN 27, creatinine 0.97, glucose of 99. Total CK 50. Troponin 0.03. AST 20, ALT 18, alk phos 38, total bilirubin 1.0. INR 0.9. PT 10.3, PTT 24. EKG third degree AV block, peak T-waves with heart rate of 37 beats per minute. IMPRESSION 1. Respiratory insufficiency. 2. Complete heart block. 3. History of hypertension. 4. Arthritis. RECOMMENDATIONS 1. We will monitor neuro status closely. 2. Continue with oxygen to maintain sats above 92%. 3. Bronchodilators in the form of DuoNeb q.6h plus q.2h for shortness of breath. 4. Monitor heart rate and blood pressure closely and maintain HR>60 and mean arterial pressure greater than 65 mmHg. Patient is currently externally paced with 80milliamps at [address] Herrera from cardiology service was notified. She will likely need pacemaker placement. 5. We will obtain echocardiogram to evaluate LV function and to rule out structural abnormalities. Avoid beta edgar and calcium channel blockers. 6. Monitor renal function Is and Os and electrolyte replacement per protocol. Will place on IV fluids NS at 75 an hour. 7. Keep n.p.o. for now. No indications for GI prophylaxis. 8. Monitor for signs of infections which include fever and WBC. Panculture if spikes a fever. 9. Chest x-ray in the ED showed no acute cardiopulmonary findings. Will obtain urinalysis with culture if indicated. 10. Monitor CBC. 11. Sliding scale insulin with Accu-Cheks to maintain euglycemia. 12. DVT prophylaxis with SCDs. We will hold off on chemical anticoagulation prophylaxis in case the patient needs any procedures. 13. No indications for GI prophylaxis. 14. The case discussed with the ED staff. 15. Further recommendations will be based on hospital course. MD ALEX Castro/EZEQUIEL /3:26 PM /3:43 PM MTDOral
[2017-09-27] MEDS ORDERED: D5W IV PRN (16:30)
[2017-09-27] MEDS ORDERED: ISOPROTERENOL IV PRN (16:30)
[2017-09-27] MEDS: SODIUM CHLOR 0.9% 1000 ML INJ 1,000 ML IV SCH (16:38)
[2017-09-27] MEDS ORDERED: CHLORHEXIDINE GLUCONATE 2 % 1 PACK (2 CLOTHS) TOP SCH (18:30)
[2017-09-27] MEDS ORDERED: POVIDONE IODINE 5% (ANTISEPSIS KIT) 4 APPLICATIONS EACH NARE SCH (18:30)
[2017-09-27] MEDS ORDERED: MUPIROCIN 2% OINT 1 APPLIC/GM SYR NASAL SCH (18:30)
--- NOTE | 2017-09-27 18:54 | MB ---
cc: MARÍA MCKEON MD DATE OF CONSULTATION 09/27/17 REASON FOR CONSULTATION AV block. HISTORY OF PRESENT ILLNESS Mrs. Hyman is an 89-year-old female, history of high blood pressure, recent hospitalization due to complete AV block. She was discharged home because back into sinus rhythm. Negative chronotropic medication. She was on beta-edgar. It was discontinued. The patient is supposed to be seen at the office for a 24 hour Holter. Last hospitalization, she refused to stay because she has a 90-year-old at home and she is the one taking care of him. She went to the PCP today for evaluation. She was found in AV block, heart rate in the 30s. She was sent to the emergency room. Blood pressure was adequate on evaluation. Apparently, an anterolateral pad was placed by the ER doc for pacing support. I did discontinue the pacing support and put her on Isuprel. Currently, in junctional heart rate of around 40, alert, fully oriented in bed eating, asymptomatic at this point. ALLERGIES FLAGYL. SOCIAL HISTORY Negative for smoking and drinking. FAMILY HISTORY Noncontributory to her current medical condition. MEDICATIONS At home, 1. Norvasc 2. 3. Alprazolam REVIEW OF SYSTEMS She refers some shortness of breath on activity but no chest pain, no dizziness. No near syncope. No fever. PHYSICAL EXAMINATION GENERAL: Alert, fully oriented. VITAL SIGNS: Her blood pressure is 139/63, pulse 48, respiratory rate 18 LUNGS: Ventilated. CARDIOVASCULAR: S1-S2 irregular. No gallop. ABDOMEN: Soft. No mass. No bruit. EXTREMITIES: No edema. CARDIOLOGY STUDIES Telemetry showed atrial fibrillation with a junctional rate of around close to 250 beats per minute at this point. LABORATORY DATA Hemoglobin 13.3, white blood cell 10.2, potassium is 4.2, creatinine is 0.97. ASSESSMENT AND RECOMMENDATIONS This is the second hospitalization for Mrs. Hyman due to AV block. The first time that was resolved after a negative chronotropic medication was removed. Currently, she is on no negative chronotropic medication. She is stable. She is on a drip of Isuprel at one mcg. Permanent pacemaker discussed with her. The risks, the nature and the benefit of the procedure are clearly stated to her. Risks include pneumothorax, cardiac perforation, stroke, need for open heart surgery and even . She understood an agreed to proceed. Also, Mrs. Hyman understands that post procedure she cannot be lifting any weight. She has to look for some help for her . The pacemaker will be inserted in the morning. MD HELLEN Gonsales/ /6:22 PM /6:44 PM
[2017-09-27] MEDS: DOCUSATE SODIUM 50 MG/SENNA 8.6 MG TAB PO SCH (21:00)
[2017-09-28] VITALS (16 sets, daily range): BP systolic 143–173; BP diastolic 60–70; PULSE 43–52; RESP 18–20; TEMP 98.1–98.8; O2SAT 96–98
[2017-09-28] MEDS: RESP: ALBUTEROL 2.5 MG/IPRATROPIUM 0.5 MG NEB (SCH) INH ×3 (03:49→21:00)
[2017-09-28] MEDS: INSULIN NovoLIN REGULAR SUPPLEMENTAL SCALE SQ SCH ×5 (04:00→23:19)
[2017-09-28] MEDS: CHLORHEXIDINE GLUCONATE 2 % 1 PACK (2 CLOTHS) TOP SCH (04:00)
[2017-09-28] MEDS: SODIUM CHLOR 0.9% 1000 ML INJ 1,000 ML IV SCH (04:50)
[2017-09-28 06:01] LABS: BICARBONATE 20.9 MEQ/L (21.0-32.0); POTASSIUM 3.8 MEQ/L (3.5-5.1)
[2017-09-28] MEDS ORDERED: HEPARIN SODIUM - IV 10,000 UNITS/10 ML VIAL ONE (06:45)
[2017-09-28] MEDS ORDERED: HEPARIN-NS/PF INJ 500 ML ONE (07:12)
[2017-09-28] MEDS ORDERED: ceFAZolin INJ 1,000 MG VIAL ONE (07:20)
[2017-09-28] MEDS ORDERED: VANCOMYCIN 500 MG VIAL ONE (07:20)
[2017-09-28] MEDS ORDERED: VANCOMYCIN HCL 1000 MG VIAL ONE (07:20)
--- NOTE | 2017-09-28 07:32 | HHI.CCPN ---
Subjective Remarks/Hospital Course The patient is an 89-year-old female with past medical history of hypertension, arthritis who presented to [facility] ED for irregular heartbeat. She was recently discharged after she was admitted a week ago for presyncopal episode and bradycardia which was thought related to her beta edgar. The patient was seen by Dr. Herrera prior to discharge and plan was to get her on Holter monitor. On arrival to the ED the patient was bradycardic with heart rate in the 30s and her 12-lead EKG in the ER showed a third degree AV block with peaked T-waves at a rate of 37 beats per minute. The patient was subsequently placed on external pacer paced at 60. She was given IV fentanyl and Versed prior to external pacing. She is currently being paced at 80 milliamps at [address] Herrera was notified by ED and plans to see the patient soon. When seen the patient is on 4 liters nasal cannula, O2 saturation 98% and blood pressure 124/56. She reports some chest heaviness. The patient denies any shortness of breath, orthopnea, PND or edema of lower extremities. In addition she denies any dizziness, lightheadedness. 09/28 Patient was started on Isuprel 1mic/min yesterday for pacemaker placement this morning by Dr. Herrera. BP 161/70 Objective Vital Signs Date Time Temp Pulse Resp B/P (MAP) Pulse Ox O2 Delivery O2 Flow Rate FiO2 09/28/17 06:00 44 09/28/17 04:00 98.1 20 161/70 (100) 98 09/27/17 20:10 Nasal Cannula 3.00 09/27/17 13:43 100 Intake and Output 09/28/17 09/28/17 09/29/17 08:00 16:00 00:00 Intake Total 1307 ml Output Total 500 ml Balance 807 ml Result Diagram: 09/27/17 1315 09/28/17 0519 Other Results Laboratory Tests Test 09/27/17 13:15 09/27/17 16:00 09/28/17 05:19 White Blood Count 10.2 TH/MM3 Red Blood Count 4.22 MIL/MM3 Hemoglobin 13.3 GM/DL Bedside Hemoglobin 13.3 G/DL Hematocrit 40.8 % Bedside Hematocrit 39.0 % Mean Corpuscular Volume 96.5 FL Mean Corpuscular Hemoglobin 31.6 PG Mean Corpuscular Hemoglobin Concent 32.7 % Red Cell Distribution Width 14.1 % Platelet Count 292 TH/MM3 Mean Platelet Volume 9.4 FL Neutrophils (%) (Auto) 73.6 % Lymphocytes (%) (Auto) 15.6 % Monocytes (%) (Auto) 9.4 % Eosinophils (%) (Auto) 0.6 % Basophils (%) (Auto) 0.8 % Neutrophils # (Auto) 7.5 TH/MM3 Lymphocytes # (Auto) 1.6 TH/MM3 Monocytes # (Auto) 1.0 TH/MM3 Eosinophils # (Auto) 0.1 TH/MM3 Basophils # (Auto) 0.1 TH/MM3 CBC Comment DIFF FINAL Differential Comment Prothrombin Time 10.3 SEC Prothromb Time International Ratio 0.9 RATIO Activated Partial Thromboplast Time 24.1 SEC Bedside Sodium 143 MMOL/L Blood Urea Nitrogen 27 MG/DL 28 MG/DL Creatinine 0.97 MG/DL 0.93 MG/DL Random Glucose 94 MG/DL 125 MG/DL Total Protein 7.2 GM/DL Albumin 3.5 GM/DL Calcium Level 8.6 MG/DL 8.6 MG/DL Magnesium Level 2.1 MG/DL Alkaline Phosphatase 38 U/L Aspartate Amino Transf (AST/SGOT) 20 U/L Alanine Aminotransferase (ALT/SGPT) 18 U/L Total Bilirubin 1.0 MG/DL Sodium Level 140 MEQ/L 143 MEQ/L Potassium Level 4.2 MEQ/L 3.8 MEQ/L Chloride Level 111 MEQ/L 111 MEQ/L Carbon Dioxide Level 16.8 MEQ/L 20.9 MEQ/L Bedside Potassium 4.2 MMOL/L Bedside Chloride 111 MMOL/L Anion Gap 12 MEQ/L 11 MEQ/L Bedside Blood Urea Nitrogen 29 MG/DL Bedside Creatinine 0.8 MG/DL Estimat Glomerular Filtration Rate 54 ML/MIN 57 ML/MIN Bedside Glucose 99 MG/DL Total Creatine Kinase 50 U/L Troponin I 0.03 NG/ML Nasal Screen MRSA (PCR) MRSA NOT DETECTED Imaging Last Impressions Chest X-Ray 09/27/17 1246 Signed Impressions: Service Date/Time: Wednesday, September 27, 2017 11:57 - CONCLUSION: Normal examination. Reverse left shoulder total arthroplasty. Christian Roberts MD Objective Remarks GENERAL: Patient is 89 yo leying in bed in NAD SKIN: Warm and dry. HEAD: Normocephalic. EYES: No scleral icterus. No injection or drainage. NECK: Supple, trachea midline. No JVD or lymphadenopathy. CARDIOVASCULAR: Bradycardic RESPIRATORY: Breath sounds equal bilaterally. No accessory muscle use. GASTROINTESTINAL: Abdomen soft, non-tender, nondistended. MUSCULOSKELETAL: No cyanosis, or edema. Neuro: Awake and alert. A/P Assessment and Plan 1. Respiratory insufficiency. 2. Complete heart block. 3. History of hypertension. 4. Arthritis. Plan Neuro: Monitor neuro status closely. Pulm: Continue with oxygen to maintain sats above 92%. Bronchodilators CV: Monitor HR and BP and maintain MAP>65 mmHg. Continue with Isuprel 1mic/min. For pacemaker placement by Dr. Herrera this morning Check 2D echo. Avoid beta edgar and calcium channel blockers. : Monitor renal function Is and Os and electrolyte replacement per protocol. On NS at 75 an hour. GI: N.p.o. for now. No indications for GI prophylaxis. ID: Monitor for signs of infections which include fever and WBC. Panculture if spikes a fever. CXR in the ED showed no acute cardiopulmonary findings. Heme: Monitor CBC. Endo: SSI with Accu-Cheks to maintain euglycemia. DVT prophylaxis with SCDs. No indications for GI prophylaxis. 1535 Addendum: Patient s/p pacemaker placement earlier this morning she was transferred starlight to [facility] from tutorial laboratory supervisor by Dr. Herrera. Will sign off and transfer care to [facility] Level 2 Mala Anaya MD Sep 28, 2017 07:32
[2017-09-28] MEDS ORDERED: BACITRACIN OINT 0.9 GM PKT TOP ONE (08:15)
[2017-09-28] MEDS ORDERED: ATROPINE SULFATE 1 MG/ML VIAL IV PUSH PRN (08:15)
[2017-09-28] MEDS ORDERED: LORazepam 2 MG/ML VIAL IV PUSH PRN (08:15)
[2017-09-28] MEDS ORDERED: LIDOCAINE HCL 1% 50 ML VIAL INFIL PRN (08:15)
[2017-09-28] MEDS ORDERED: oxyCODONE/ACETAMINOPHEN 5 MG/325 MG TAB PO PRN ×2 (08:15)
[2017-09-28] MEDS ORDERED: METOCLOPRAMIDE HCL 10 MG/2 ML VIAL IV PUSH PRN (08:15)
[2017-09-28] MEDS ORDERED: SODIUM CHLOR 0.9% 250 ML INJ 250 ML IV PRN (08:15)
--- NOTE | 2017-09-28 08:34 | CATHPROC ---
Career Element HIS Report Study Information Study Number Scheduled Start Study Start [id number] 09/28/2017 Sep 28 2017 6:38AM Referring Institution Admit Source Facility Department 1 Other [facility] - House Manager Physician and Clinical Staff Initial Sam Murrieta Bus Transportation Manager Yan Mayen,RT(R) Bus Transportation Manager Luz Chu,RT(R) TECH2 Other Anesthesia, GREENSKEEPER HEAD Recorder Rosa Go,TERESA Recorder Amalia Jay,TERESA Scrub Joy Wu,XM1 TANK DRIVER TECH2 Procedures Performed Procedure Location (Site) Vessel Name Venogram RV Ventricle Wire insertion Fem Vein (right) Femoral Vein Equipment Time Biodiesel Plant Operations Engineer Description Size Mfg Part Number Used/Scraped [id number] 07:37 SET, TUBING COOLFLOW * [id number] Used INC. [id number] 07:31 COOK/PACER DILATOR SET (MICRA) FR8-12 Used *[id number] WIRE, GUIDE AMPLATZ STIFF [id number] 07:31 COOK/PACER 3MMJ Used 180CM *[id number] 07:31 [employer] INDUSTRIES PACK, CCL CUSTOM * Used *[id number] 07:31 [employer] PACER CHIU, LIMB * 2530 *[id number] Used [id number] 07:31 NAMIC TUBING, HIGH PRESSURE 20" 20" Used *[id number] 07:31 NYCOMED OMNIPAQUE, 300 MG, 50ML 50ML [id number] Used SUTURE, 0 ETHIBOND [CT1] (CX21D), 8pk [id number] 07:31 R[employer] BLANKET,WARM AIR CCL * Used *[id number] 07:31 VITATRON [employer] MONITOR, PACEMAKER\\ICD 30837Q Used [id number] 07:37 [employer] SHEATH, INTRODUCER (MICRA) Used *[id number] SYSTEM, TRANS-CATHETER [id number] 07:31 [employer]ITATRON [employer] Used PACING (MICRA) *[id number] Equipment Model, Serial, Lot Number and Expiration Data Description Model Number Serial Number Lot Number Expiration Da te SYSTEM, TRANS-CATHETER PACING [id number] 11-20-2018 (MICRA) Labs Hgb (g/dl) Hct (%) RBC (MIL/MM3) WBC (l/cumm) Platelets (thousands) 11.60-17.00 35.00-51.00 4.00-5.90 4.00-11.00 150.00-450.00 13.3 40.8 4.2 10.2 292 Glucose (mg/dl) BUN (mg/dl) Creatinine (mg/dl) BUN:Creatinine (1:x) 74.00-106.00 7.00-18.00 0.50-1.30 10.00-20.00 125 28 0.9 31.1 Na (meq/l) K (meq/l) Cl (meq/l) CO2 (mmol/L) Ca (mg/dl) 136.00-145.00 3.50-5.10 98.00-107.00 21.00-32.00 8.50-10.10 143 3.8 111 20.9 8.6 PT (sec) PTT (sec) INR (PTT:PT) 9.80-11.60 24.30-30.10 0.90-1.10 10.3 24.1 0.9 Medication Medication Total Dose (Bolus/Oral) Medication Total Dosage/Unit 2% XYLOCAINE 50 mL HEPARIN 2000 units Medications (Bolus/Oral) Medication Time Given Dosage/Unit Administered By Reason 2% XYLOCAINE 09/28/2017 7:42:40 AM 50 mL Sam Herrera 50 mL 2% XYLOCAINE given in lab by Sam Herrera in Right Groin via Subcutaneous. Ordered by Terry Herrera HEPARIN 09/28/2017 7:53:32 AM 2000 units Anesthesia, GREENSKEEPER HEAD As per physicians verbal order 2000 units HEPARIN given in lab by Anival, GREENSKEEPER HEAD via Peripheral IV. Ordered by Sam Herrera. Reas on: As per physicians verbal order. Medication (Drip) Medication Time Given Dosage/Unit Concentration/Unit Diluent (ml) Solution ANCEF 09/28/2017 7:28:18 AM 2 g 2 g ANCEF given in lab by SANDER Florian, via Peripheral IV. Ordered by Hanscy. Javier Reason: As per physicians verbal order. VANCOMYCIN DRIP 09/28/2017 7:28:04 AM 1 g 1 g VANCOMYCIN DRIP given in lab by AnesthesiaSANDER, via Peripheral IV. Ordered by Love Herrera Reason: As per physicians verbal order. Initial Case Assessment Cardiovascular HR NIBP Chest Pain 58 203/86 0 Edema Present Skin color Skin None Normal Warm Dry Circulatory - Right Pulses Dorsalis Pedis 1 Scale (0,1,2,3,4,d) Circulatory - Left Pulses Dorsalis Pedis 1 Scale (0,1,2,3,4,d) Circulatory - Lower Extremities Color Lower Right Color Lower Left Normal Normal Neurological State Oriented to time-place- Alert Moves all extremities person Respiration - General Respiration Rate SpO2 (%) (B/min) 20 96 Final Case Assessment Cardiovascular HR NIBP Chest Pain 50 134/62 0 Edema Present Skin color Skin None Normal Warm Dry Circulatory - Right Pulses Dorsalis Pedis 1 Scale (0,1,2,3,4,d) Circulatory - Left Pulses Dorsalis Pedis 1 Scale (0,1,2,3,4,d) Circulatory - Lower Extremities Color Lower Right Color Lower Left Normal Normal Neurological State Oriented to time-place- Lethargic Moves all extremities person Respiration - General Respiration Rate SpO2 (%) O2 (lpm) (B/min) 21 100 6 Chronological Log Time Study Chronological Log 7:02:54 Patient arrived via Bed. 7:02:56 Patient Name, D.O.B, / Armband Verified By R.N. 7:02:58 Consent signed by the physician and the patient and verified by the House Manager staff. 7:02:59 Pre-op and post- op instructions given; patient acknowledges understanding of instructions. 7:03:00 History and physical on the chart. 7:03:01 Verbal Stimulation=2 Physical Stimulation=2 Airway=2 Respiration=2 TOTAL=8. (0=absent, 1=li mited, 2=present) 7:03:40 Patient has been NPO for More than 6Hrs. 7:03:[address] Dis[address]ibr[address]ator Pads in Place On Patient. 7:03:41 Skin Breakdown- none per pt. 7:03:52 Patient Warmer Placed on the Table. 7:03:53 Roslyn Prominences Protected 7:07:52 Disposable Defibrillator Pads Placed On Patient. 7:08:10 Indwelling Rodriguez catheter present upon patient's arrival. 7:17:11 Presedation assessment performed by House Manager RN. Assessment: Initial Case, HR=58 BPM, EPBT=383/86 mmhg, Chest Pain=0, Edema=None, Color=Normal, S kin = Warm, Dry Right Pulses: Artem Ped=1 Left Pulses: Artem Ped=1 7:17:23 Lower Right Extremities: Color=Normal Lower Left Extremities: Color=Normal Neurological: State=Alert, Ox3, [place] Respiration: Resp=20 B/min, SpO2=96 % A # 18 IV was noted in the Wrist (right). Grade = 0. Arrived with Isuprel infusing at 7.3ml/hr. 09% nacl started now at 7:18:07 kvo per anesthesia. 7:18:38 A # 20 IV was noted in the Forearm (left). Grade = 0. 0.9%nacl infusing at kvo. 7:19:13 Anesthesia at bedside. Assumes care of patient. 7:25:13 Table restraints applied according to hospital policy 7:27:29 Reference ECG taken 7:27:38 Pressure channel 2 zeroed. 1 g VANCOMYCIN DRIP given in lab by SANDER Florian, via Peripheral IV. Ordered by Sam Herrera. Reason: As 7:28:04 per physicians verbal order. 2 g ANCEF given in lab by SANDER Florian, via Peripheral IV. Ordered by Sam Herrera. Re ason: As per 7:28:18 physicians verbal order. 7:30:07 MD paged 7:37:57 MD arrived. Time Out. Correct patient, procedure, procedure equipment, site and side verified with physician present. Time 7:42:01 concurred by MD, individual staff and GREENSKEEPER HEAD. Time Out #2 - Consents verified, patient in correct position, all results are labled and display ed, safety precautions 7:42:31 taken, antibiotics administered. Time out concurred by MD, individual staff and GREENSKEEPER HEAD in procedur e 7:42:36 Case Start 7:42:40 50 mL 2% XYLOCAINE given in lab by Sam Herrera in Right Groin via Subcutaneous. Ordered by Sam Herrera. 7:42:47 Vascular access was obtained in the Fem Vein (right). 7:42:49 Wire inserted 7:43:22 A WIRE, GUIDE AMPLATZ STIFF 180CM 3MMJ was inserted via Fem Vein (right). 7:43:50 Figure 8 knot using Ethibond placed to Rt Fem Vein. 7:43:57 A DILATOR SET (MICRA) FR8-12 was advanced into the Fem Vein (right) using the Modified Seldi nger technique. 8FR A DILATOR SET (MICRA) FR8-12 was exchanged in the Fem Art (right). This was necessary in order t o accomodate a 7:46:45 larger catheter. 12FR A DILATOR SET (MICRA) FR8-12 was exchanged in the Fem Vein (right). This was necessary in order to accomodate a 7:47:10 larger catheter. 16FR A DILATOR SET (MICRA) FR8-12 was exchanged in the Fem Vein (right). This was necessary in order to accomodate a 7:47:53 larger catheter. 20FR 7:50:28 A SHEATH, INTRODUCER (MICRA) was advanced into the Fem Vein (right) using the Modified Seldi nger technique. 7:50:50 Dilator and wire removed. Heparin drip attached to introducer. 2000 units HEPARIN given in lab by Anesthesia, GREENSKEEPER HEAD via Peripheral IV. Ordered by Sam Herrera. Reason: As per 7:53:32 physicians verbal order. 7:54:12 Micra device prepped and set up. 7:55:06 A SYSTEM, TRANS-CATHETER PACING (MICRA) was advanced via right fem vein and placed in the RV under fluoro. The RV was manually injected with 10 cc's of contrast. OMNIPAQUE, 300 MG, 50ML 50ML used to visu ragini septal 7:56:48 placement. 8:01:23 Micra deployed and placement confirmed under fluoro in 2 views. 8:02:11 The RV/Micra device impedence and threshold being tested. 8:05:58 Delivery system and introducer removed from Fem Vein Right. 8:06:[address] Pressure held 20 minutes by TF. Figure 8 knot to be removed at 140 0. 8:08:58 isuprel drip off. 8:18:06 DOCU called. Spoke to Heavenly. 8:18:12 Bedside Report will be given. 8:18:17 Implant Procedure was performed. 8:18:34 A PPM Implant . (Single) Micra. 8:20:09 Implantable Device card placed in patient's chart. Assessment: Final Case, HR=50 BPM, ZSPM=424/62 mmhg, Chest Pain=0, Edema=None, Color=Normal, S kin = Warm, Dry Right Pulses: Artem Ped=1 Left Pulses: Artem Ped=1 8:21:55 Lower Right Extremities: Color=Normal Lower Left Extremities: Color=Normal Neurological: State=Lethargic, Ox3, [place] Respiration: Resp=21 B/min, WmQ5=171 %, O2=6 lpm 8:34:51 Case End 8:34:52 No case complications noted. 8:35:44 Sterile dressing applied to site 8:35:48 Cine recording checked. 8:39:50 Defibrillator pads removed. Skin intact. 8:40:38 Patient moved to stretcher End Study - Contrast Media Used In Study Contrast Total Opened (mL) Total Used (mL) Total Wasted (mL) Omnipaque 50 25 25 End Study - Maximum Contrast Load Max Contrast Load (mL) 307.8 End Study - Radiation Exposure Fluoro Time (minutes) 1.8 End Study - Patient Disposition Complications Transferred To Interventional Outcome No Telemetry Bed successful
[2017-09-28] MEDS ORDERED: DO NOT ADM ANY ANTICOAGULANT DRUGS PRN (08:35)
[2017-09-28] MEDS ORDERED: PROPOFOL 500 MG/50 ML INJ 50 ML ONE (08:48)
[2017-09-28] MEDS ORDERED: ONDANSETRON HCL 4 MG/2 ML VIAL IV PUSH PRN (09:00)
--- NOTE | 2017-09-28 09:38 | MP ---
cc: MARÍA MCKEON M.D. DATE OF SURGERY: 09/28/2017 OPERATION: Micra pacemaker insertion. INDICATION Mrs. Hyman is a 89-year-old female with second admission due to AV block, not on any negative chronotropic medication, heart rate was in the 30s. Isuprel was initiated and rate was in the 50s, to undergo permanent pacemaker insertion. She is symptomatic. The risks, the nature and the benefit of the procedure are clearly stated to her. The risks include pneumothorax, cardiac perforation, stroke, need for open heart surgery and even . The patient understood and agreed to proceed. PROCEDURE After written informed consent was obtained, the patient was brought to the EP lab where she was prepped and draped in the usual sterile fashion. Conscious sedation was initiated and maintained throughout the procedure by anesthesiologist. Once sedation was verified, the right inguinal area was anesthetized with 2% Xylocaine. Using modified Seldinger technique, the right femoral vein was cannulated and a stiff Amplatz was advanced all the way to the superior vena cava. Then ____ less than a centimeter and equal made at the entry point. Subsequently the vein was progressively dilated using #8, 12, 16 and 20-Luxembourgish dilator. Then the delivery sheath was advanced all the way to the right atrium. Subsequently, the Micra delivery system was advanced. After crossing the valve the Micra was delivered at the septum. Subsequently, the device was delivered. After adequate sensing and pacing threshold measured in multiple occasion, more than six times and the system flushed, a pacemaker was delivered. The sheath and the dilator was removed. Previous to that a [id number] was placed at the exit point. That was tied. That will be kejpt there for the next 6 hours. No incident report. The patient tolerated the procedure. Blood loss was minimal. 1. Implanted hardware. The implanted pacemaker is a Medtronic Micra, model number [id number], serial number [id number]. 2. Threshold. The right ventricular pacing threshold in bipolar mode was 0.5 volts at 0.24 milliseconds, lead impedance 1050 ohms and R-wave at 8.9 mV. 3. Setting. The device set in VVIR 60, upper rate limit 100 beats per minute. CONCLUSION Successful leadless pacemaker insertion. COMMENT AND RECOMMENDATION The patient is going to be transferred to the recovery room. Will be observed and can be discharged home later today. MD HELLEN Gonsales/GABRIEL /8:15 AM /9:20 AM
--- NOTE | 2017-09-28 10:08 | EKG ---
Date Performed: 09/27/2017 Time Performed: 12:49:40 PTAGE: 89 years EKG: IDIOVENTRICULAR RHYTHM NORMAL Sinus rhythm THIRD DEGREE ATRIOVENTRICULAR BLOCK ABNORMAL ECG INTERPRETATION BASED ON A DEFAULT AGE OF 40 YEARS PREVIOUS TRACING : 09/20/2017 03.59 DOCTOR: Christian Wan Interpretating Date/Time 09/28/2017 10:08:08
[2017-09-28] MEDS ORDERED: diphenhydrAMINE HCL 25 MG CAP PO PRN (20:45)
[2017-09-28] MEDS ORDERED: ESTROGENS CONJUGATED 0.3 MG TAB PO ONE (20:45)
[2017-09-28] MEDS: DOCUSATE SODIUM 50 MG/SENNA 8.6 MG TAB PO SCH (21:00)
[2017-09-28] MEDS: amLODIPine BESYLATE 5 MG TAB PO SCH (22:23)
[2017-09-28] MEDS: CELECOXIB 200 MG CAP PO SCH (22:32)
[2017-09-29] VITALS (11 sets, daily range): BP systolic 149; BP diastolic 47; PULSE 48–50; RESP 18; TEMP 98–98.5; O2SAT 95–96
[2017-09-29] MEDS: CHLORHEXIDINE GLUCONATE 2 % 1 PACK (2 CLOTHS) TOP SCH (04:00)
[2017-09-29] MEDS: RESP: ALBUTEROL 2.5 MG/IPRATROPIUM 0.5 MG NEB (SCH) INH ×2 (04:00→09:09)
[2017-09-29] MEDS: INSULIN NovoLIN REGULAR SUPPLEMENTAL SCALE SQ SCH ×2 (04:00→08:00)
[2017-09-29 04:23] LABS: BASOPHIL % 0.4 % (0.0-2.0); EOSINOPHIL % 0.4 % (0.0-4.0); HEMATOCRIT 34.1 % (35.0-46.0); HEMO FLAGS DIFF FINAL; LYMPH % 12.9 % (9.0-44.0); LYMPHOCYTE # 1.2 TH/MM3 (1.0-4.8); MEAN CELL VOLUME 95.8 FL (80.0-100.0); MEAN CORPUSCULAR HEMOGLOBIN 32.2 PG (27.0-34.0); MEAN CORPUSCULAR HGB CONC 33.6 % (32.0-36.0); MONO % 10.3 % (0.0-8.0); PLATELET COUNT 186 TH/MM3 (150-450); RED BLOOD COUNT 3.56 MIL/MM3 (4.00-5.30); RED CELL DISTRIBUTION WIDTH 14.2 % (11.6-17.2); WHITE BLOOD COUNT 9.2 TH/MM3 (4.0-11.0)
[2017-09-29 04:48] LABS: BICARBONATE 22.6 MEQ/L (21.0-32.0); POTASSIUM 3.8 MEQ/L (3.5-5.1)
[2017-09-29] MEDS: SODIUM CHLOR 0.9% 1000 ML INJ 1,000 ML IV SCH (07:30)
[2017-09-29] MEDS: DOCUSATE SODIUM 50 MG/SENNA 8.6 MG TAB PO SCH (09:00)
[2017-09-29] MEDS: CELECOXIB 200 MG CAP PO SCH (09:00)
[2017-09-29] MEDS: amLODIPine BESYLATE 5 MG TAB PO SCH (09:00)
--- NOTE | 2017-09-29 09:39 | HHI.PR ---
Subjective Remarks in no acute distress. denies chest pain or sob. d/w the RN and no acute issues over night. wants to go home today. Objective Vitals Vital Signs Date Time Temp Pulse Resp B/P (MAP) Pulse Ox O2 Delivery O2 Flow Rate FiO2 09/29/17 08:17 98.0 50 18 149/47 (81) 95 09/29/17 07:00 49 09/29/17 06:43 98.5 50 18 149/47 (81) 96 09/29/17 04:00 50 09/29/17 03:00 50 09/29/17 02:00 50 09/29/17 01:00 50 09/29/17 00:00 50 09/28/17 23:40 98.5 50 18 164/60 (94) 96 09/28/17 23:00 50 09/28/17 22:00 50 09/28/17 21:00 50 09/28/17 20:00 50 09/28/17 19:15 98.5 49 18 173/66 (101) 96 09/28/17 19:00 50 09/28/17 18:00 50 09/28/17 17:00 48 09/28/17 16:00 50 09/28/17 15:00 52 09/28/17 14:00 50 09/28/17 14:00 98.3 49 18 157/65 (95) 96 I/O 09/28/17 09/28/17 09/28/17 09/29/17 09/29/17 09/29/17 07:00 15:00 23:00 07:00 15:00 23:00 Intake Total 1307 ml 300 ml 480 ml Output Total 500 ml 700 ml 401 ml Balance 807 ml -400 ml 79 ml Intake Oral 240 ml 300 ml 480 ml IV Total 1067 ml Output Urine Total 500 ml 700 ml 400 ml Stool Total 1 ml Result Diagram: 09/29/17 0405 09/29/17 0405 Imaging Last Impressions Chest X-Ray 09/27/17 1246 Signed Impressions: Service Date/Time: Wednesday, September 27, 2017 11:57 - CONCLUSION: Normal examination. Reverse left shoulder total arthroplasty. Christian Roberts MD Objective Remarks GENERAL: This is a well-nourished, well-developed patient, in no apparent distress. CARDIOVASCULAR: Regular rate and regular rhythm without murmurs, gallops, or rubs. RESPIRATORY: Clear to auscultation. Breath sounds equal bilaterally. No wheezes , rales, or rhonchi. GASTROINTESTINAL: Abdomen soft, non-tender, nondistended. Normal, active bowel sounds MUSCULOSKELETAL: Extremities without clubbing, cyanosis, or edema. NEURO: Alert & Oriented x4 to person, place, time, situation. Moves all ext x4 Procedures pacemaker placement. Medications and IVs Current Medications Sodium Chloride (NS Flush) 2 ml UNSCH PRN IVF FLUSH AFTER USING IV ACCESS; Start 09/27/17 at 13:00 Midazolam HCl (Versed Inj) 5 mg STK-MED ONCE .ROUTE ; Start 09/27/17 at 13:17; Stop 09/27/17 at 13:18; Status DC Fentanyl Citrate (fentaNYL INJ) 25 mcg ONCE ONCE IV PUSH Last administered on 09/27/17 13:19; Start 09/27/17 at 13:30; Stop 09/27/17 at 13:31; Status DC Midazolam HCl (Versed Inj) 2 mg ONCE ONCE IV PUSH Last administered on 13:19; Start 09/27/17 at 13:30; Stop 09/27/17 at 13:31; Status DC Fentanyl Citrate (fentaNYL INJ) 25 mcg ONCE ONCE IV PUSH Last administered on 09/27/17 13:25; Start 09/27/17 at 13:30; Stop 09/27/17 at 13:31; Status DC Midazolam HCl 100 ml @ 2 mls/hr TITRATE PRN IV SEDATION; Start 09/27/17 at 14: 15 Albuterol/ Ipratropium (Duoneb Neb) 1 ampule Q6HR NEB INH Last administered on 09/28/17 21:00; Start 09/27/17 at 16:00 Albuterol/ Ipratropium (Duoneb Neb) 1 ampule Q2HR NEB PRN INH WHEEZING; Start 09/27/17 at 15:15 Miscellaneous Information 1 Q361D XX ; Start 09/27/17 at 15:15 Chlorhexidine Gluconate (Chlorhexidine 2% Cloth) 3 pack Taper DAILY@04 TOP Last administered on 09/28/17 04:00; Start 09/28/17 at 04:00; Stop 09/24/18 at 03:59 Chlorhexidine Gluconate (Chlorhexidine 2% Cloth) 3 pack UNSCH PRN TOP HYGIENIC CARE; Start 09/27/17 at 15:15 Senna/Docusate Sodium (Imelda-Colace) 1 tab BID PO Last administered on 09:00; Start 09/27/17 at 21:00 Magnesium Hydroxide (Milk Of Magnesia Liq) 30 ml Q12H PRN PO Mild constipation ; Start 09/27/17 at 15:15 Sennosides (Senokot) 17.2 mg Q12H PRN PO Moderate constipation; Start at 15:15 Bisacodyl (Dulcolax Supp) 10 mg DAILY PRN RECTAL SEVERE CONSITIPATION; Start 09/27/17 at 15:15 Lactulose (Lactulose Liq) 30 ml DAILY PRN PO SEVERE CONSITIPATION; Start 09/27 at 15:15 Dextrose (D50w (Vial) Inj) 50 ml UNSCH PRN IV PUSH HYPOGLYCEMIA-SEE COMMENTS; Start 09/27/17 at 15:30 Glucagon (Glucagon Inj) 1 mg UNSCH PRN OTHER HYPOGLYCEMIA-SEE COMMENTS; Start 09/27/17 at 15:30 Insulin Human Regular (NovoLIN R SUPPLEMENTAL SCALE) 1 Q4H SQ ; Start 09/27/17 at 16:00 Sodium Chloride 1,000 ml @ 75 mls/hr [id number] IV Last administered on 04:50; Start 09/27/17 at 15:30 Morphine Sulfate (Morphine Inj) 1 mg Q4H PRN IV PAIN SCALE 1 TO 10 Last administered on 09/27/17 16:15; Start 09/27/17 at 16:00 Isoproterenol HCl 2 mg/Dextrose 260 ml @ 7.8 mls/hr CONTINUOUS PRN IV Hypotension Last administered on 09/27/17 16:34; Start 09/27/17 at 16:30; Stop 09/28/17 at 08:17; Status DC Povidone Iodine (Betadine 5% Antisepsis Kit) 1 applic RUG REPAIRER EACH NARE ; Start 09/27/17 at 18:30; Stop 10/01/17 at 18:29 Mupirocin (Bactroban Nasal 2% Oint) 1 applic RUG REPAIRER NASAL ; Start 09/27/17 at 18:30; Stop 10/01/17 at 18:29 Chlorhexidine Gluconate (Chlorhexidine 2% Cloth) 3 pack RUG REPAIRER TOP ; Start at 18:30; Stop 10/01/17 at 18:29 Heparin Sodium (Porcine) (Heparin Inj) 10,000 units STK-MED ONCE .ROUTE ; Start 09/28/17 at 06:45; Stop 09/28/17 at 06:46; Status DC Heparin Sodium/ Sodium Chloride 500 ml @ As Directed STK-MED ONCE .ROUTE ; Start 09/28/17 at 07:12; Stop 09/28/17 at 07:13; Status DC Vancomycin HCl (Vancomycin Inj) 500 mg STK-MED ONCE .ROUTE ; Start 09/28/17 at 07:20; Stop 09/28/17 at 07:21; Status DC Vancomycin HCl (Vancomycin Inj) 1,000 mg STK-MED ONCE .ROUTE ; Start 09/28/17 at 07:20; Stop 09/28/17 at 07:21; Status DC Cefazolin Sodium (Ancef Inj) 2,000 mg STK-MED ONCE .ROUTE ; Start 09/28/17 at 07:20; Stop 09/28/17 at 07:21; Status DC Oxycodone/ Acetaminophen (Percocet 5-325 Mg) 1 tab Q4H PRN PO PAIN SCALE 1 TO 4; Start 09/28/17 at 08:15 Oxycodone/ Acetaminophen (Percocet 5-325 Mg) 2 tab Q4H PRN PO PAIN SCALE 5 TO 10; Start 09/28/17 at 08:15 Lorazepam (Ativan Inj) 0.5 mg UNSCH PRN IV PUSH ANXIETY; Start 09/28/17 at 08: 15; Stop 09/29/17 at 08:14; Status DC Atropine Sulfate (Atropine Inj) 0.5 mg UNSCH PRN IV PUSH VAGAL REPONSE; Start 09/28/17 at 08:15 Sodium Chloride 250 ml @ 500 mls/hr ONCE PRN IV VAGAL REPONSE; Start at 08:15; Stop 09/29/17 at 08:14; Status DC Metoclopramide HCl (Reglan Inj) 10 mg Q4H PRN IV PUSH NAUSEA; Start 09/28/17 at 08:15 Ondansetron HCl (Zofran Inj) 4 mg Q4H PRN IV PUSH NAUSEA; Start 09/28/17 at 09 :00 Lidocaine HCl (Xylocaine 1% Inj (50 ml)) 10 ml UNSCH PRN INFIL SHEATH REMOVAL; Start 09/28/17 at 08:15; Stop 09/29/17 at 08:14; Status DC Bacitracin (Bacitracin Oint Packet) 0.9 gm ONCE ONCE TOP ; Start 09/28/17 at 08:15; Stop 09/28/17 at 08:53; Status DC Propofol 50 ml @ As Directed STK-MED ONCE .ROUTE ; Start 09/28/17 at 08:48; Stop 09/28/17 at 08:49; Status DC Miscellaneous Information ALL NURSING DEPARTME... UNSCH PRN .XX SEE LABEL COMMENTS; Start 09/28/17 at 08:35; Stop 09/29/17 at 08:34; Status DC Amlodipine Besylate (Norvasc) 5 mg DAILY PO Last administered on 09/29/17 09: 00; Start 09/28/17 at 20:45 Estrogens Conjugated (Premarin) 0.3 mg ONCE ONCE PO Last administered on 09/28 22:24; Start 09/28/17 at 20:45; Stop 09/28/17 at 20:48; Status DC Diphenhydramine HCl (Benadryl) 25 mg HS PRN PO insomnia Last administered on 22:23; Start 09/28/17 at 20:45 Celecoxib (CeleBREX) 200 mg DAILY PO Last administered on 09/29/17 09:00; Start 09/28/17 at 20:45 A/P Assessment and Plan A/P - symptomatic bradycardia s/p pacemaker placement- cleared by cardiology for discharge- f/u as outpatient. echo to be followed-up. -hypertension; resume amlodipine- f/u as outpatient. Discharge Planning dc home today with f/u with pcp and cardiology. see med list. d/w the patient and RN. case management for [facility]. Howie Rico MD Sep 29, 2017 09:38
--- NOTE | 2017-09-29 09:41 | HHI.FF ---
Face to Face Verification Diagnosis: (1) Third degree AV block Home Health Nursing Order: Medical education Signs/symptoms of disease process Nursing assessment with vital signs I have seen patient Jo Ann Hyman on 09/29/17. My clinical findings support the need for the requested home health care services because: Ltd mobility - disease progression I certify that my clinical findings support that this patient is homebound because: Poor cardiac reserve Howie Rico MD Sep 29, 2017 09:41
--- NOTE | 2017-09-29 09:43 | HHI.DS ---
Discharge Summary Admission Date Sep 27, 2017 at 13:34 Discharge Date: Sep 29, 2017 Admitting Diagnosis third degree AV block (1) Third degree AV block ICD Code: I44.2 - Atrioventricular block, complete Diagnosis: Principal Status: Acute Procedures pacemaker placement. Brief History - From Admission The patient is an 89-year-old female with past medical history of hypertension, arthritis who presented to [facility] ED for irregular heartbeat. She was recently discharged after she was admitted a week ago for presyncopal episode and bradycardia which was thought related to her beta edgar. The patient was seen by Dr. Herrera prior to discharge and plan was to get her on Holter monitor. On arrival to the ED the patient was bradycardic with heart rate in the 30s and her 12-lead EKG in the ER showed a third degree AV block with peaked T-waves at a rate of 37 beats per minute. CBC/BMP: 09/29/17 0405 09/29/17 0405 Significant Findings Laboratory Tests Test 09/27/17 13:15 09/27/17 16:00 09/28/17 05:19 09/29/17 04:05 Neutrophils (%) (Auto) 73.6 % (16.0-70.0) 76.0 % (16.0-70.0) Monocytes (%) (Auto) 9.4 % (0.0-8.0) 10.3 % (0.0-8.0) Monocytes # (Auto) 1.0 TH/MM3 (0-0.9) Activated Partial Thromboplast Time 24.1 SEC (24.3-30.1) Blood Urea Nitrogen 27 MG/DL (7-18) 28 MG/DL (7-18) Alkaline Phosphatase 38 U/L (45-117) Chloride Level 111 MEQ/L (98-107) 111 MEQ/L (98-107) 113 MEQ/L (98-107) Carbon Dioxide Level 16.8 MEQ/L (21.0-32.0) 20.9 MEQ/L (21.0-32.0) Bedside Chloride 111 MMOL/L (98-109) Bedside Blood Urea Nitrogen 29 MG/DL (8-26) Estimat Glomerular Filtration Rate 54 ML/MIN (>89) 57 ML/MIN (>89) 68 ML/MIN (>89) Bedside Glucose 99 MG/DL (60-95) Random Glucose 125 MG/DL (74-106) 111 MG/DL (74-106) Red Blood Count 3.56 MIL/MM3 (4.00-5.30) Hemoglobin 11.4 GM/DL (11.6-15.3) Hematocrit 34.1 % (35.0-46.0) Calcium Level 8.3 MG/DL (8.5-10.1) Imaging Last Impressions Chest X-Ray 09/27/17 1246 Signed Impressions: Service Date/Time: Wednesday, September 27, 2017 11:57 - CONCLUSION: Normal examination. Reverse left shoulder total arthroplasty. Christian Roberts MD PE at Discharge GENERAL: This is a well-nourished, well-developed patient, in no apparent distress. CARDIOVASCULAR: Regular rate and regular rhythm without murmurs, gallops, or rubs. RESPIRATORY: Clear to auscultation. Breath sounds equal bilaterally. No wheezes , rales, or rhonchi. GASTROINTESTINAL: Abdomen soft, non-tender, nondistended. Normal, active bowel sounds MUSCULOSKELETAL: Extremities without clubbing, cyanosis, or edema. NEURO: Alert & Oriented x4 to person, place, time, situation. Moves all ext x4 Hospital Course - symptomatic bradycardia s/p pacemaker placement- cleared by cardiology for discharge- f/u as outpatient. echo to be followed-up. -hypertension; resume amlodipine- f/u as outpatient. Pt Condition on Discharge: Fair Discharge Disposition: Disch w/ Home Health Serv Discharge Time: <= 30 minutes Discharge Instructions DIET: Follow Instructions for: Heart Healthy Diet Activities you can perform: Regular-No Restrictions Follow up Referrals: Cardiology PCP Follow-up Continued Medications: Alprazolam (Alprazolam) 0.25 Mg Tab 0.25 MG PO BID PRN for ANXIETY, #30 TAB 0 Refills Amlodipine (Norvasc) 5 Mg Tab 5 MG PO DAILY for Blood Pressure Management, #90 TAB 3 Refills Celecoxib (Celebrex) 200 Mg Cap 200 MG PO DAILY for Pain Management, #90 CAP 3 Refills Conjugated Estrogens-Medroxyprogesterone (Prempro Blister Pack) 0.3-1.5 Mg Tab 1 TAB PO DAILY for Estrogen Supplements, #3 PACK 3 Refills Diphenhydramine-Acetaminophen (Acetaminophen Pm Extra St) 500-25 mg Tab Howie Rico MD Sep 29, 2017 09:43
[2017-09-29] MEDS ORDERED: WALKER WHEELS/F1 MIS (10:20)
--- NOTE | 2017-09-29 10:24 | EKG ---
Date Performed: 09/29/2017 Time Performed: 09:25:03 PTAGE: 89 years EKG: ELECTRONIC VENTRICULAR PACEMAKER ABNORMAL RHYTHM ECG PREVIOUS TRACING : 09/28/2017 09.56 DOCTOR: Jay Smart Interpretating Date/Time 09/29/2017 10:22:51
--- NOTE | 2017-09-29 10:51 | EKG ---
Date Performed: 09/28/2017 Time Performed: 09:56:16 PTAGE: 89 years EKG: Demand pacing. Pacemaker rhythm - no further analysis Abnormal ECG PREVIOUS TRACING : 09/27/2017 12.49 DOCTOR: Jay Smart Interpretating Date/Time 09/29/2017 10:49:44
--- NOTE | 2017-10-02 18:00 | ECHRPT ---
Indication: CONCLUSIONS The left ventricular systolic function is hyperdynamic with an estimated ejection fraction in the ra nge of 65- 70%. Normal left ventricular size. Wall thickness is measured at the upper limits of normal. Mild mitral valve regurgitation. There is severe tricuspid valve regurgitation. The estimated pulmonary arterial pressure is 77.2 mmHg. BP: / HR: Rhythm: MEASUREMENTS (Male / Female) Normal Values Technical Quality:Good 2D ECHO LV Diastolic Diameter PLAX 4.1 cm 4.2 - 5.9 / 3.9 - 5.3 cm LV Systolic Diameter PLAX 2.8 cm IVS Diastolic Thickness 1.2 cm 0.6 - 1.0 / 0.6 - 0.9 cm LVPW Diastolic Thickness 0.8 cm 0.6 - 1.0 / 0.6 - 0.9 cm LV Relative Wall Thickness 0.5 RV Internal Dim ED PLAX 2.0 cm M-MODE Aortic Root Diameter MM 3.5 cm LA Systolic Diameter MM 4.4 cm LA Ao Ratio MM 1.3 AV Cusp Separation MM 2.1 cm DOPPLER TR Peak Velocity 410.0 cm/s TR Peak Gradient 67.2 mmHg Right Atrial Pressure 10.0 mmHg Pulmonary Artery Systolic Pressu 77.2 mmHg Right Ventricular Systolic Press 77.2 mmHg FINDINGS LEFT VENTRICLE The left ventricular systolic function is hyperdynamic with an estimated ejection fraction in the ra nge of 65- 70%. Normal left ventricular size. Wall thickness is measured at the upper limits of normal. RIGHT VENTRICLE Normal right ventricular size and systolic function. LEFT ATRIUM The left atrial size is normal. RIGHT ATRIUM The right atrial size is normal. ATRIAL SEPTUM Normal atrial septal thickness without atrial level shunting by limited color doppler interrogation. AORTA The aortic root and proximal ascending aorta are normal in size on limited imaging. MITRAL VALVE Mild mitral valve regurgitation. Structurally normal mitral valve. AORTIC VALVE Trileaflet aortic valve. No aortic valve stenosis or regurgitation. TRICUSPID VALVE There is mild tricuspid valve regurgitation. Structurally normal tricuspid valve. The estimated pulmonary arterial pressure is 77.2 mmHg. PULMONARY VALVE No pulmonary valve regurgitation or stenosis. VESSELS The inferior vena cava is normal in size. PERICARDIUM No pericardial effusion. Jose Pitt MD, FACC, [facility] (Electronically Signed) Final Date:02 October 2017 17:59
== END 2017-09-29 11:24 | disposition home health service (06) | DRG 229 ==
LOC: NEPC 12:32 → NEDA 13:34 → HIMW 15:43 → HDIC 09-28 10:57 → HCIS 09-28 11:20
PROVIDERS: ADMIT Anesthesiology; ATTEND Internal Medicine
PROC: 02HK3NZ Insertion of Intracardiac Pacemaker into Right Ventricle, Percutaneous Approach (ICD-10-PCS; principal; 2017-09-28 07:30)
DX: I44.2 Atrioventricular block, complete (principal); R06.89 Other abnormalities of breathing; I10 Essential (primary) hypertension; M19.90 Unspecified osteoarthritis, unspecified site; Z88.8 Allergy status to other drugs, medicaments and biological substances
CPT/HCPCS: 0387T; 71010; 80048; 80053; 82435; 82550; 82565; 82947; 82948; 83735; 84132; 84295; 84484; 84520; 85025; 85610; 85730; 87641; 93005; 93306; 94640; 99152; J0690; J1644; J2250; J2270; J3010; J3370; J7030; J7060